=== PATIENT | female | born 1960 ===

== ENCOUNTER 2018-02-24 20:26 | Emergency (ER) | payer MEDICAID, OTHER ==
[2018-02-24 20:26] VITALS: PULSE 90; BMI 25.6
[2018-02-24 20:34] VITALS: O2SAT 98
[2018-02-24 21:16] LABS: BASO # 0.1 K/uL (0.0-0.2); BASO % 0.6 % (0.0-2.0); EOS # 0.2 K/uL (0.0-0.7); EOS % 1.4 % (0.0-4.0); HEMOGLOBIN 13.9 g/dL (11.0-16.0); LYMPH # 3.5 K/uL (1.0-4.3); LYMPH % 29.7 % (20.0-40.0); MEAN CORPUSCULAR HEMOGLOBIN 29.6 pg (27.0-31.0); MEAN CORPUSCULAR HGB CONC 32.6 g/dL (33.0-37.0); MEAN PLATELET VOLUME 8.7 fL (7.2-11.7); MONO # 1.3 K/uL (0.0-0.8); MONO % 11.1 % (0.0-10.0); NEUT # 6.8 K/uL (1.8-7.0); NEUT % 57.2 % (50.0-75.0); NRBC % 0.1 % (0.0-2.0); RBC 4.69 Mil/uL (3.80-5.20); RED CELL DISTRIBUTION WIDTH 13.8 % (11.5-14.5); WHITE BLOOD COUNT 11.9 K/uL (4.8-10.8)
[2018-02-24 21:32] LABS: ALB/GLOB RATIO 0.9 (1.0-2.1); ALBUMIN 3.8 g/dL (3.5-5.0); CALCIUM 8.7 mg/dl (8.6-10.4)
--- NOTE | 2018-02-24 21:32 | C.PDOC ---
History Of Present Illness 57 year old female presents to the ED for evaluation of right flank pain and hematuria which began yesterday. Patient also c/o nausea and states it is slightly difficult for her to pass urine. She denies fever, chills, vomiting, vaginal bleeding/discharge. Chief Complaint (Nursing): Back Pain History Per: Patient History/Exam Limitations: no limitations Onset/Duration Of Symptoms: Hrs Current Symptoms Are (Timing): Still Present Quality Of Discomfort: "Pain" Additional History Per: Patient Past Medical History Reviewed: Historical Data, Nursing Documentation, Vital Signs Vital Signs: Last Vital Signs Temp 98.3 F 02/24/18 23:35 Pulse 96 H 02/24/18 23:35 Resp 17 02/24/18 23:35 BP 124/84 02/24/18 23:35 Pulse Ox 98 02/25/18 00:54 - Medical History PMH: Anemia, Anxiety, Arthritis, Atrial Fibrillation, CAD, Depression, Diabetes , HTN, Hypercholesterolemia Denies: CHF, COPD, HIV, Hypothyroidism, Chronic Kidney Disease, Rheumatoid Arthritis Surgical History: Pacemaker - [facility] Procedures INJECT/INFUSE NEC (11/26/14) INTRODUCTION OF SERUM/TOX/VACCINE INTO MUSCLE, PERC APPROACH (08/07/15) TRANSFUSE NONAUT FROZEN PLASMA IN PERIPH VEIN, PERC (08/07/15) Family History: States: Unknown Family Hx - Social History Hx Tobacco Use: No Hx Alcohol Use: No Hx Substance Use: No - Immunization History Hx Tetanus Toxoid Vaccination: Yes Hx Influenza Vaccination: Yes Hx Pneumococcal Vaccination: No Review Of Systems Gastrointestinal: Positive for: Nausea. Negative for: Vomiting Genitourinary: Positive for: Hematuria Musculoskeletal: Positive for: Other (right flank pain ) Physical Exam - Physical Exam Appears: Non-toxic, No Acute Distress Skin: Normal Color, Warm, Dry Head: Atraumatic, Normacephalic Eye(s): bilateral: Normal Inspection Oral Mucosa: Moist Neck: Supple Chest: Symmetrical, No Deformity, No Tenderness Cardiovascular: Rhythm Regular, No Murmur Respiratory: Normal Breath Sounds, No Rales, No Rhonchi, No Wheezing Gastrointestinal/Abdominal: Soft, No Tenderness, No Guarding, No Rebound Back: CVA Tenderness (right-sided ) Extremity: Normal ROM, Capillary Refill (less than 2 seconds ) Neurological/Psych: Oriented x3, Normal Speech, Normal Cognition ED Course And Treatment - Laboratory Results Result Diagrams: 02/24/18 21:12 02/24/18 21:12 O2 Sat by Pulse Oximetry: 98 (on RA) Pulse Ox Interpretation: Normal - CT Scan/US CT A/P Other Rad Studies (CT/US): Read By Radiologist, Radiology Report Reviewed CT/US Interpretation: EXAM: CT Abdomen and Pelvis Without Intravenous Contrast. CLINICAL HISTORY: 57 years old, female; Pain; Abdominal pain; Flank ; Right; Additional info: Right flank pain. TECHNIQUE: Axial computed tomography images of the abdomen and pelvis without intravenous contrast. All CT. scans at this facility use one or more dose reduction techniques, viz.: automated exposure control;. ma/kV adjustment per patient size (including targeted exams where dose is matched to indication; i.e. head); or iterative reconstruction technique. Coronal and sagittal reformatted images were created and reviewed. COMPARISON: CT - ABD PELVIS W/O PO OR IV CONT 2015-03-11 16:14. FINDINGS: Lung bases: Unremarkable. No mass. No consolidation. Heart: The heart demonstrates mild diffuse enlargement. Coronary artery calcification. ABDOMEN: Liver: Unremarkable. Gallbladder and bile ducts: Unremarkable. No calcified stones. No ductal dilation. Pancreas: Unremarkable. No ductal dilation. Spleen: Unremarkable. No splenomegaly. Adrenals: Unremarkable. No mass. Kidneys and ureters: The right kidney is markedly atrophic. New moderate right hydronephrosis and. hydroureter with mild adjacent inflammatory stranding. No distal ureteral stone. The left kidney is. normal. Stomach and bowel: There is no wall thickening or pericolonic stranding to suggest colitis. No. obstruction. There is a moderate amount of retained stool in the colon. PELVIS: Appendix: No findings to suggest acute appendicitis. Bladder: There is mild asymmetric bladder wall thickening. No stones. Reproductive: Unremarkable as visualized. ABDOMEN and PELVIS: Intraperitoneal space: Unremarkable. No free air. No significant fluid collection. Bones/joints: No acute fracture. No dislocation. Soft tissues: Unremarkable. Vasculature: The vasculature demonstrates diffuse mild atherosclerotic calcification. No abdominal aortic aneurysm. Lymph nodes: Unremarkable. No enlarged lymph nodes. IMPRESSION: Atrophic right kidney with moderate right hydroureteronephrosis and periureteral inflammatory. changes. No distal ureteral stone. Diagnostic considerations include recently passed stone or. nonopaque distal ureteral stone. Medical Decision Making Medical Decision Making: Progress: Bloodwork, urinalysis, CT A/P ordered and reviewed. Toradol IVP administered. Disposition - Disposition Referrals: Karol Mccurdy MD [Staff Provider] - Disposition: HOME/ ROUTINE Disposition Time: 21:40 Condition: IMPROVED Additional Instructions: KAMILA SIN, thank you for letting us take care of you today. Your provider was Lm Wang DO. The emergency medical care you received today was directed at your acute symptoms. If you were prescribed any medication, please fill it and take as directed. It may take several days for your symptoms to resolve. Return to the Emergency Department if your symptoms worsen, do not improve, or if you have any other problems. Please contact your doctor or call one of the physicians/clinics you have been referred to that are listed on the Patient Visit Information form that is included in your discharge packet. Bring any paperwork you were given at discharge with you along with any medications you are taking to your follow up visit. Our treatment cannot replace ongoing medical care by a primary care provider outside of the emergency department. Thank you for allowing the [facility] team to be part of your care today. Follow up with the urologist in 2-3 days for re-evaluation and further management. KAMILA SIN, cesario por dejarnos atenderlo dean. Sahu proveedor fue Lm Wang DO. La atencin mdica de emergencia que recibi hoy estaba dirigida a geovanna sntomas agudos. Si le prescribieron algn medicamento, llnelo y tome seg n las indicaciones. Geovanna sntomas pueden tardar varios junior en resolverse. Regrese al Departamento de Emergencia si geovanna sntomas empeoran, no mejoran o si tiene algn otro problema. Comunquese con sahu mdico o llame a jefe de los mdicos / clnicas a los que ray sido referido que figura en el formulario de Informacin de visita del paciente que se incluye en sahu paquete de martinez. Traiga todos los documentos que recibi al momento del martinez junto con los medicamentos que est tomando en sahu visita de seguimiento. Nuestro tratamiento no puede reemplazar la atencin mdica en curso por un proveedor de atencin primaria fuera del departamento de emergencia. Cesario por permitir que el equipo de [facility] sea parte de sahu cuidado hoy. Martin un seguimiento con el urlogo en 2-3 junior para chung reevaluacin y administracin adicional. Prescriptions: Ciprofloxacin [Cipro] 500 mg PO BID #14 tab Ibuprofen [Motrin] 600 mg PO Q6 PRN #20 tab PRN Reason: Pain, Moderate (4-7) Tamsulosin [Flomax] 0.4 mg PO DAILY #7 cap Instructions: Kidney Stones in Adults Forms: Gen Discharge Inst Cymro, Posibl. (Cymro) Print Language: FRENCH - Clinical Impression Clinical Impression: Acute urinary tract infection - Scribe Statement The provider has reviewed the documentation as recorded by the Scribe (Kadie Hill) Provider Attestation: All medical record entries made by the Scribe were at my direction and personally dictated by me. I have reviewed the chart and agree that the record accurately reflects my personal performance of the history, physical exam, medical decision making, and the department course for this patient. I have also personally directed, reviewed, and agree with the discharge instructions and disposition.
[2018-02-24 21:47] LABS: SQUAMOUS EPITHIAL 4 /hpf (0-5); URINE BACTERIA FEW (<OCC); URINE BILIRUBIN NEGATIVE (NEGATIVE); URINE BLOOD 3+ (NEGATIVE); URINE CLARITY Hazy (Clear); URINE COLOR Red (YELLOW); URINE GLUCOSE (UA) 1+ mg/dL (Normal); URINE LEUKOCYTE ESTERASE 1+ Leu/uL (Negative); URINE PROTEIN 3+ mg/dL (NEGATIVE); URINE UROBILINOGEN NORMAL mg/dL (0.2-1.0)
--- NOTE | 2018-02-24 22:48 | CT ---
EXAM: CT Abdomen and Pelvis Without Intravenous Contrast CLINICAL HISTORY: 57 years old, female; Pain; Abdominal pain; Flank; Right; Additional info: Right flank pain TECHNIQUE: Axial computed tomography images of the abdomen and pelvis without intravenous contrast. All CT scans at this facility use one or more dose reduction techniques, viz.: automated exposure control; ma/kV adjustment per patient size (including targeted exams where dose is matched to indication; i.e. head); or iterative reconstruction technique. Coronal and sagittal reformatted images were created and reviewed. COMPARISON: CT - ABD PELVIS W/O PO OR IV CONT 2015-03-11 16:14 FINDINGS: Lung bases: Unremarkable. No mass. No consolidation. Heart: The heart demonstrates mild diffuse enlargement. Coronary artery calcification. ABDOMEN: Liver: Unremarkable. Gallbladder and bile ducts: Unremarkable. No calcified stones. No ductal dilation. Pancreas: Unremarkable. No ductal dilation. Spleen: Unremarkable. No splenomegaly. Adrenals: Unremarkable. No mass. Kidneys and ureters: The right kidney is markedly atrophic. New moderate right hydronephrosis and hydroureter with mild adjacent inflammatory stranding. No distal ureteral stone. The left kidney is normal. Stomach and bowel: There is no wall thickening or pericolonic stranding to suggest colitis. No obstruction. There is a moderate amount of retained stool in the colon. PELVIS: Appendix: No findings to suggest acute appendicitis. Bladder: There is mild asymmetric bladder wall thickening. No stones. Reproductive: Unremarkable as visualized. ABDOMEN and PELVIS: Intraperitoneal space: Unremarkable. No free air. No significant fluid collection. Bones/joints: No acute fracture. No dislocation. Soft tissues: Unremarkable. Vasculature: The vasculature demonstrates diffuse mild atherosclerotic calcification. No abdominal aortic aneurysm. Lymph nodes: Unremarkable. No enlarged lymph nodes. IMPRESSION: Atrophic right kidney with moderate right hydroureteronephrosis and periureteral inflammatory changes. No distal ureteral stone. Diagnostic considerations include recently passed stone or nonopaque distal ureteral stone.
[2018-02-24 23:37] VITALS: BP 124/84; PULSE 96; RESP 17; TEMP 98.3
== END 2018-02-24 23:35 | disposition home or self-care (01) ==
LOC: C.ER 20:26
DX: N39.0 Urinary tract infection, site not specified (principal); I48.91 Unspecified atrial fibrillation; I10 Essential (primary) hypertension; E11.9 Type 2 diabetes mellitus without complications; E78.00 Pure hypercholesterolemia, unspecified; D64.9 Anemia, unspecified
CPT/HCPCS: 74176; 80053; 81001; 83690; 85025; 87086; 96374; 99284; J1885

== ENCOUNTER 2018-02-25 23:59 | Inpatient (IN) | payer MEDICAID ==
[2018-02-26] VITALS: PULSE 90; BMI 25.6
[2018-02-26] MEDS ORDERED: Sodium Chloride 0.9% 1,000 ML IV ONE (00:38)
[2018-02-26] MEDS ORDERED: Morphine 4 MG/ML VIAL ONE (00:54)
[2018-02-26] MEDS ORDERED: Sodium Chloride 0.9% 1,000 ML ONE (00:54)
[2018-02-26 01:38] LABS: BASO # 0.1 K/uL (0.0-0.2); BASO % 0.6 % (0.0-2.0); EOS # 0.1 K/uL (0.0-0.7); EOS % 1.5 % (0.0-4.0); HEMOGLOBIN 13.1 g/dL (11.0-16.0); LYMPH # 2.3 K/uL (1.0-4.3); LYMPH % 24.9 % (20.0-40.0); MEAN CELL VOLUME 90.5 fL (81.0-99.0); MEAN CORPUSCULAR HEMOGLOBIN 30.3 pg (27.0-31.0); MEAN CORPUSCULAR HGB CONC 33.4 g/dL (33.0-37.0); MEAN PLATELET VOLUME 8.7 fL (7.2-11.7); MONO # 0.9 K/uL (0.0-0.8); MONO % 10.3 % (0.0-10.0); NEUT # 5.7 K/uL (1.8-7.0); NEUT % 62.7 % (50.0-75.0); NRBC % 0.1 % (0.0-2.0); RBC 4.34 Mil/uL (3.80-5.20); RED CELL DISTRIBUTION WIDTH 13.6 % (11.5-14.5); WHITE BLOOD COUNT 9.1 K/uL (4.8-10.8)
[2018-02-26 01:43] LABS: INR 1.6; PROTHROMBIN TIME 17.7 SECONDS (9.7-12.2)
[2018-02-26 01:59] LABS: ALB/GLOB RATIO 0.9 (1.0-2.1); ALBUMIN 3.8 g/dL (3.5-5.0); ALT/SGPT 17 U/L (9-52); AST/SGOT 25 U/L (14-36); BLOOD UREA NITROGEN 17 mg/dL (7-17); CALCIUM 9.1 mg/dl (8.6-10.4); GFR AFRICAN-AMERICAN > 60; GFR NON-AFRICAN AMERICAN 51; LIPASE 108 U/L (23-300)
--- NOTE | 2018-02-26 02:39 | C.PDOC ---
History Of Present Illness Pt c/o painful hematuria. She was evaluated in this ED yesterday with labs, urinalysis and CT scan of abdomen/pelvis. She was discharged home on Cipro which she is taking without relief. Time Seen by Provider: 02/26/18 00:33 Chief Complaint (Nursing): Female Genitourinary History Per: Patient, Family Onset/Duration Of Symptoms: Days (1) Current Symptoms Are (Timing): Still Present Severity: Severe Location Of Pain/Discomfort: Suprapubic Radiation Of Pain To:: Back Quality Of Discomfort: "Pain" Associated Symptoms: Nausea, Urinary Symptoms Alleviating Factors: None Additional History Per: Prior Records Past Medical History Reviewed: Historical Data, Nursing Documentation, Vital Signs Vital Signs: Last Vital Signs Temp 98.4 F 02/26/18 00:03 Pulse 96 H 02/26/18 00:03 Resp 20 02/26/18 00:03 BP 139/94 H 02/26/18 00:03 Pulse Ox 97 02/26/18 02:42 - Medical History PMH: Anemia, Anxiety, Arthritis, Atrial Fibrillation, CAD, Depression, Diabetes , HTN, Hypercholesterolemia Surgical History: Pacemaker - [facility] Procedures INJECT/INFUSE NEC (11/26/14) INTRODUCTION OF SERUM/TOX/VACCINE INTO MUSCLE, PERC APPROACH (08/07/15) TRANSFUSE NONAUT FROZEN PLASMA IN PERIPH VEIN, PERC (08/07/15) Family History: States: Unknown Family Hx - Social History Hx Tobacco Use: No Hx Alcohol Use: No Hx Substance Use: No - Immunization History Hx Tetanus Toxoid Vaccination: Yes Hx Influenza Vaccination: Yes Hx Pneumococcal Vaccination: No Review Of Systems Except As Marked, All Systems Reviewed And Found Negative. Cardiovascular: Negative for: Chest Pain Respiratory: Negative for: Shortness of Breath Gastrointestinal: Positive for: Abdominal Pain Genitourinary: Positive for: Dysuria, Hematuria Musculoskeletal: Positive for: Back Pain Skin: Negative for: Rash Neurological: Negative for: Weakness, Numbness Physical Exam - Physical Exam Appears: Chronically Ill, Other (Uncomfortable in pain) Skin: Normal Color, Warm, Dry Head: Atraumatic, Normacephalic Eye(s): bilateral: PERRL, EOMI Neck: Normal ROM, Supple Respiratory: Normal Breath Sounds, No Accessory Muscle Use Gastrointestinal/Abdominal: Soft, Tenderness (suprapubic) Back: CVA Tenderness (right) Extremity: Normal ROM Neurological/Psych: Oriented x3, Normal Motor, Normal Sensation ED Course And Treatment - Laboratory Results Result Diagrams: 02/26/18 01:35 02/26/18 01:35 O2 Sat by Pulse Oximetry: 97 Pulse Ox Interpretation: Normal Medical Decision Making Medical Decision Making: Upon review of records, pt had a urine culture in 2014 that was positive for ESBL E. Coli. Disposition Discussed With : Chris Colon Comment: He accepted pt on his service. Doctor Will See Patient In The: Hospital Counseled Patient/Family Regarding: Studies Performed, Diagnosis - Disposition Disposition: HOSPITALIZED Disposition Time: 03:07 Condition: FAIR - Clinical Impression Clinical Impression: Complicated urinary tract infection, Hematuria
[2018-02-26 03:17] LABS: SQUAMOUS EPITHIAL 2 /hpf (0-5); URINE BACTERIA OCC (<OCC); URINE BILIRUBIN NEGATIVE (NEGATIVE); URINE BLOOD 3+ (NEGATIVE); URINE CLARITY Hazy (Clear); URINE COLOR Amber (YELLOW); URINE GLUCOSE (UA) NORMAL (Normal); URINE LEUKOCYTE ESTERASE 1+ Leu/uL (Negative); URINE PROTEIN 3+ mg/dL (NEGATIVE); URINE UROBILINOGEN NORMAL mg/dL (0.2-1.0)
[2018-02-26] MEDS ORDERED: Ciprofloxacin 400mg/200ml D5W 400 MG/200 ML BAG IVPB ONE (03:51)
[2018-02-26] MEDS: Ciprofloxacin 400mg/200ml D5W 400 MG/200 ML BAG IVPB SCH ×2 (03:54→15:02)
[2018-02-26] MEDS ORDERED: Enoxaparin 40 mg Syringe SC SCH (10:00)
[2018-02-26] MEDS: Multiple Vitamins Tab PO SCH (10:56)
--- NOTE | 2018-02-26 14:47 | US ---
PROCEDURE: Ultrasound of the Kidneys HISTORY: uti COMPARISON: None available. TECHNIQUE: Sonogram of the kidneys. FINDINGS: RIGHT KIDNEY: Measures: 9.7 x 5.4 x 4.2 cm. Normal in size, contour and echogenicity. Mildly dilated right kidney collecting system suggestive of mild hydronephrosis. LEFT KIDNEY: Measures: 11.1 x 6.3 x 5.7 cm. Normal in size, contour and echogenicity. No stone, solid mass lesion or hydronephrosis visualized. OTHER FINDINGS: The urinary bladder is mildly distended. IMPRESSION: Mild right hydronephrosis.
--- NOTE | 2018-02-26 17:11 | CP.PCM.HP ---
History of Present Illness - History of Present Illness History of Present Illness: CC: abdominal pelvic pain History Of Present Illness Pt is a 57 year old female who has h/o cardiac problems, she is not sure according to her she has weak heart and used to have defibrillator due to arrytmia came in with c/o Lower abdominal pain in pelvic area associated with painful hematuria. She was evaluated in this ED yesterday with labs, urinalysis and CT scan of abdomen/pelvis. She was discharged home on Cipro which she is taking without relief. Present on Admission - Present on Admission Any Indicators Present on Admission: Yes Review of Systems - Review of Systems Systems not reviewed;Unavailable: Acuity of Condition - Constitutional Constitutional: Fatigue, Lethargy, Weakness - EENT Eyes: absent: As Per HPI, Blind Spots, Blurred Vision, Change in Vision, Decreased Night Vision, Diplopia, Discharge, Dry Eye, Exophthalmos, Floaters, Irritation, Itchy Eyes, Loss of Peripheral Vision, Pain, Photophobia, Requires Corrective Lenses, Sees Flashes, Spots in Vision, Tunnel Vision, Other Visual Disturbances, Loss of Vision, Other Nose/Mouth/Throat: absent: As Per HPI, Epistaxis, Nasal Congestion, Nasal Discharge, Nasal Obstruction, Nasal Trauma, Nose Pain, Post Nasal Drip, Sinus Pain, Sinus Pressure, Bleeding Gums, Change in Voice, Dental Pain, Dry Mouth, Dysphagia, Halitosis, Hoarsness, Lip Swelling, Mouth Lesions, Mouth Pain, Odynophagia, Sore Throat, Throat Swelling, Tongue Swelling, Facial Pain, Neck Pain, Neck Mass, Other - Breasts Breasts: absent: As Per HPI, Change in Shape, Mass, Pain, Nipple Discharge, Nipple Inversion, Skin Changes, Swelling, Other - Cardiovascular Cardiovascular: Dyspnea on Exertion, Rapid Heart Rate - Respiratory Respiratory: absent: As Per HPI, Cough, Dyspnea, Hemoptysis, Dyspnea on Exertion , Wheezing, Snoring, Stridor, Pain on Inspiration, Chest Congestion, Excessive Mucous Production, Change in Mucous Color, Pain with Coughing, Other - Gastrointestinal Gastrointestinal: Abdominal Pain - Genitourinary Genitourinary: Change in Urinary Stream, Dysuria, Hematuria - Neurological Neurological: absent: As Per HPI, Abnormal Gait, Abnormal Hearing, Abnormal Movements, Abnormal Speech, Behavioral Changes, Burning Sensations, Confusion, Convulsions, Disequilibrium, Dizziness, Numbness, Focal Weakness, Frequent Falls , Headaches, Lack of Coordination, Loss of Vision, Memory Loss, Paresthesias, Radicular Pain, Restless Legs, Sensory Deficit, Syncope, Tingling, Tremor, Vertigo, Weakness, Other Visual Disturbances, Other - Psychiatric Psychiatric: absent: As Per HPI, Abnormal Sleep Pattern, Anhedonia, Anxiety, Auditory Hallucinations, Behavioral Changes, Change in Appetite, Change in Libido, Confusion, Depression, Difficulty Concentrating, Hallucinations, Homicidal Ideation, Hopelessness, Irritability, Memory Loss, Mood Swings, Panic Attacks, Paranoia, Suicidal Ideation, Visual Hallucinations, Tactile Hallucinations, Other - Endocrine Endocrine: absent: As Per HPI, Change in Body Appearance, Change in Libido, Cold Intolorance, Deepening of Voice, Excessive Sweating, Fatigue, Flushing, Heat Intolorance, Increase in Ring/Shoe/Hat Size, Palpitations, Polydipsia, Polyphagia, Polyuria, Other Past Patient History - Infectious Disease Hx of Infectious Diseases: None - Tetanus Immunizations Tetanus Immunization: Unknown - Past Medical History & Family History Past Medical History?: Yes - Past Social History Smoking Status: Never Smoked - CARDIAC Hx Atrial Fibrillation: Yes Hx Hypercholesterolemia: Yes Hx Hypertension: Yes Hx Pacemaker: Yes - PULMONARY Hx Chronic Obstructive Pulmonary Disease (COPD): No - NEUROLOGICAL Hx Neurological Disorder: No - HEENT Hx HEENT Problems: No - RENAL Hx Chronic Kidney Disease: No - ENDOCRINE/METABOLIC Hx Hypothyroidism: No - HEMATOLOGICAL/ONCOLOGICAL Hx Anemia: Yes - INTEGUMENTARY Hx Dermatological Problems: No - MUSCULOSKELETAL/RHEUMATOLOGICAL Hx Arthritis: Yes - GASTROINTESTINAL Hx Gastrointestinal Disorders: No - GENITOURINARY/GYNECOLOGICAL Hx Genitourinary Disorders: Yes Hx Incontinence: Yes - PSYCHIATRIC Hx Anxiety: Yes Hx Depression: Yes Hx Substance Use: No - SURGICAL HISTORY Hx Surgeries: Yes Hx Hysterectomy: Yes Other/Comment: PACEMAKER- 2014 ? FOR LOW HEART RATE - ANESTHESIA Hx Anesthesia: Yes Hx Anesthesia Reactions: No Meds Allergies/Adverse Reactions: Allergies Allergy/AdvReac Type Severity Reaction Status Date / Time No Known Allergies Allergy Verified 02/24/18 20:34 Physical Exam - Constitutional Additional comments: mild distress due to pelvic pain - Eye Exam Eye Exam: EOMI, Normal appearance - Respiratory Exam Respiratory Exam: Clear to Auscultation Bilateral, NORMAL BREATHING PATTERN - Cardiovascular Exam Cardiovascular Exam: +S1, +S2, Systolic Murmur Additional comments: S3 positive 2/6 ESM at apex AICD in infraclavicular area - GI/Abdominal Exam GI & Abdominal Exam: Tenderness Additional comments: hypogastric tenderness - Neurological Exam Neurological exam: Alert, CN II-XII Intact, Normal Gait, Oriented x3, Reflexes Normal - Psychiatric Exam Psychiatric exam: Normal Affect, Normal Mood - Skin Skin Exam: Dry, Intact, Normal Color, Warm Results - Vital Signs Recent Vital Signs: Last Vital Signs Temp 98.4 F 02/26/18 16:00 Pulse 70 02/26/18 16:00 Resp 20 02/26/18 16:00 BP 134/89 02/26/18 16:00 Pulse Ox 97 02/26/18 16:00 - Labs Result Diagrams: 02/26/18 01:35 02/26/18 01:35 Labs: Laboratory Results - last 24 hr 02/26/18 02/26/18 02/26/18 01:35 01:35 01:35 WBC 9.1 RBC 4.34 Hgb 13.1 Hct 39.3 MCV 90.5 MCH 30.3 MCHC 33.4 RDW 13.6 Plt Count 275 MPV 8.7 Neut % (Auto) 62.7 Lymph % (Auto) 24.9 [place] % (Auto) 10.3 H Eos % (Auto) 1.5 Baso % (Auto) 0.6 Neut # (Auto) 5.7 Lymph # (Auto) 2.3 [place] # (Auto) 0.9 H Eos # (Auto) 0.1 Baso # (Auto) 0.1 PT 17.7 H INR 1.6 APTT 36 H Sodium 141 Potassium 4.1 Chloride 105 Carbon Dioxide 24 Anion Gap 15 BUN 17 Creatinine 1.1 Est GFR ( Amer) > 60 Est GFR (Non-Af Amer) 51 Random Glucose 104 Calcium 9.1 Total Bilirubin 0.6 AST 25 ALT 17 Alkaline Phosphatase 121 Total Protein 8.2 Albumin 3.8 Globulin 4.4 H Albumin/Globulin Ratio 0.9 L Lipase 108 Urine Color Urine Clarity Urine pH Ur Specific [place] Urine Protein Urine Glucose (UA) Urine Ketones Urine Blood Urine Nitrate Urine Bilirubin Urine Urobilinogen Ur Leukocyte Esterase Urine WBC (Auto) Urine RBC (Auto) Ur Squamous Epith Cells Urine Bacteria 02/26/18 03:07 WBC RBC Hgb Hct MCV MCH MCHC RDW Plt Count MPV Neut % (Auto) Lymph % (Auto) [place] % (Auto) Eos % (Auto) Baso % (Auto) Neut # (Auto) Lymph # (Auto) [place] # (Auto) Eos # (Auto) Baso # (Auto) PT INR APTT Sodium Potassium Chloride Carbon Dioxide Anion Gap BUN Creatinine Est GFR ( Amer) Est GFR (Non-Af Amer) Random Glucose Calcium Total Bilirubin AST ALT Alkaline Phosphatase Total Protein Albumin Globulin Albumin/Globulin Ratio Lipase Urine Color [place] Urine Clarity Hazy Urine pH 7.0 Ur Specific [place] 1.009 Urine Protein 3+ H Urine Glucose (UA) Normal Urine Ketones Negative Urine Blood 3+ H Urine Nitrate Positive H Urine Bilirubin Negative Urine Urobilinogen Normal Ur Leukocyte Esterase 1+ H Urine WBC (Auto) 119 H Urine RBC (Auto) 1680 H Ur Squamous Epith Cells 2 Urine Bacteria Occ H Assessment & Plan (1) Hematuria Assessment and Plan: R/O nephrolithiasis, ureterolituhiasis Kidney U/S Urology eval urine cultures Status: Acute (2) Acute urinary tract infection Status: Acute Priority: High (3) Atrial fibrillation with rapid ventricular response Status: Acute
[2018-02-26] MEDS: Sodium Chloride 0.9% 1,000 ML IV SCH (20:33)
[2018-02-27] MEDS: Ciprofloxacin 400mg/200ml D5W 400 MG/200 ML BAG IVPB SCH ×2 (01:46→14:26)
[2018-02-27] MEDS: (Novolog) Insulin Aspart, Recombinant 100 u/ml 10 ml vial SC SCH ×4 (07:58→21:32)
[2018-02-27] MEDS: Multiple Vitamins Tab PO SCH (10:20)
[2018-02-27] MEDS ORDERED: Iodixanol 320 MG/ML 100 ML BOTTLE IV ONE (16:12)
[2018-02-27] MEDS: Sodium Chloride 0.9% 1,000 ML IV SCH (19:57)
[2018-02-27] MEDS ORDERED: Morphine 4 MG/ML VIAL IVP STA (21:06)
--- NOTE | 2018-02-27 23:44 | CP.PCM.PN ---
Subjective - Date & Time of Evaluation Date of Evaluation: 02/27/18 Time of Evaluation: 20:00 - Subjective Subjective: Pt seen and examined, c/o intense flank pain, is seen by nephrology too and KUB was performed b/l hydronephrosis, Ct abdomen is ordered on IV fluids,pain meds Objective - Vital Signs/Intake and Output Vital Signs (last 24 hours): Temp Pulse Resp BP Pulse Ox 98.5 F 73 20 108/76 97 02/27/18 16:00 02/27/18 16:00 02/27/18 16:00 02/27/18 16:00 02/27/18 16:00 Intake and Output: 02/27/18 02/28/18 18:59 06:59 Intake Total 1660 Balance 1660 - Medications Medications: Current Medications Acetaminophen (Tylenol 325mg Tab) 650 mg PO Q6 PRN PRN Reason: Fever >100.4 F Last Admin: 02/27/18 14:22 Dose: 650 mg Aspirin (Ecotrin) 81 mg PO DAILY MAX Last Admin: 02/27/18 10:19 Dose: 81 mg Clonazepam (Klonopin) 0.5 mg PO DAILY PRN PRN Reason: Anxiety Last Admin: 02/27/18 14:22 Dose: 0.5 mg Famotidine (Pepcid) 20 mg PO DAILY [facility] Last Admin: 02/27/18 10:19 Dose: 20 mg Ciprofloxacin (Cipro 400mg/200ml Dsw) 400 mg in 200 mls @ 133 mls/hr IVPB Q12H MAX PRN Reason: Protocol Last Admin: 02/27/18 14:26 Dose: 133 mls/hr Sodium Chloride (Sodium Chloride 0.9%) 1,000 mls @ 40 mls/hr IV .Q24H MAX Last Admin: 02/27/18 19:57 Dose: Not Given Insulin Aspart (Novolog) 0 unit SC ACHS MAX PRN Reason: Protocol Last Admin: 02/27/18 21:32 Dose: Not Given Lactulose (Enulose) 20 gm PO DAILY PRN PRN Reason: Constipation Last Admin: 02/26/18 21:41 Dose: 20 gm Losartan Potassium (Cozaar) 50 mg PO HS [facility] Last Admin: 02/27/18 21:34 Dose: 50 mg Metoprolol Tartrate (Lopressor) 100 mg PO Q12 MAX Last Admin: 02/27/18 21:34 Dose: 100 mg Mirtazapine (Remeron) 30 mg PO HS [facility] Last Admin: 02/27/18 21:33 Dose: 30 mg Morphine Sulfate (Morphine) 2 mg IVP Q4 PRN PRN Reason: Pain, moderate (4-7) Last Admin: 02/27/18 18:20 Dose: 2 mg Multivitamins (Hexavitamin) 1 tab PO DAILY [facility] Last Admin: 02/27/18 10:20 Dose: 1 tab Phenazopyridine HCl (Pyridium) 200 mg PO TIDPC [facility] Last Admin: 02/27/18 18:21 Dose: 200 mg Pneumococcal Polyvalent Vaccine (Pneumovax 23 Vaccine) 0.5 ml IM .ONCE ONE Stop: 03/01/18 10:01 Tamsulosin HCl (Flomax) 0.4 mg PO DAILY [facility] Last Admin: 02/27/18 10:19 Dose: 0.4 mg Tramadol HCl (Ultram) 50 mg PO Q6 PRN PRN Reason: Pain, Mild (1-3) Last Admin: 02/27/18 20:38 Dose: 50 mg - Labs Labs: 02/26/18 01:35 02/26/18 01:35 PT 17.7 SECONDS (9.7-12.2) H 02/26/18 01:35 INR 1.6 02/26/18 01:35 APTT 36 SECONDS (21-34) H 02/26/18 01:35 - Constitutional Appears: No Acute Distress - Head Exam Head Exam: ATRAUMATIC, NORMAL INSPECTION, NORMOCEPHALIC - Eye Exam Eye Exam: EOMI, Normal appearance, PERRL Pupil Exam: NORMAL ACCOMODATION, PERRL - ENT Exam ENT Exam: Mucous Membranes Moist, Normal Exam - Respiratory Exam Respiratory Exam: Clear to Ausculation Bilateral, NORMAL BREATHING PATTERN - Cardiovascular Exam Cardiovascular Exam: REGULAR RHYTHM, +S1, +S2. absent: Murmur - GI/Abdominal Exam GI & Abdominal Exam: Soft, Normal Bowel Sounds. absent: Tenderness - Rectal Exam Rectal Exam: Deferred Assessment and Plan (1) Hematuria Status: Acute (2) Acute urinary tract infection Assessment & Plan: urology eval CT abdomen careful hydration R/O nephrolithiasis Pain meds Status: Acute (3) Atrial fibrillation with rapid ventricular response Status: Acute
[2018-02-28] MEDS: Ciprofloxacin 400mg/200ml D5W 400 MG/200 ML BAG IVPB SCH ×2 (02:16→13:49)
[2018-02-28 07:33] LABS: HEMOGLOBIN 12.4 g/dL (11.0-16.0); MEAN CELL VOLUME 90.1 fL (81.0-99.0); MEAN CORPUSCULAR HEMOGLOBIN 30.5 pg (27.0-31.0); MEAN CORPUSCULAR HGB CONC 33.9 g/dL (33.0-37.0); MEAN PLATELET VOLUME 8.8 fL (7.2-11.7); RBC 4.07 Mil/uL (3.80-5.20); RED CELL DISTRIBUTION WIDTH 13.7 % (11.5-14.5); WHITE BLOOD COUNT 8.9 K/uL (4.8-10.8)
[2018-02-28 07:56] LABS: BLOOD UREA NITROGEN 12 mg/dL (7-17); CALCIUM 8.7 mg/dl (8.6-10.4); GFR AFRICAN-AMERICAN > 60; GFR NON-AFRICAN AMERICAN 57
[2018-02-28] MEDS: (Novolog) Insulin Aspart, Recombinant 100 u/ml 10 ml vial SC SCH ×4 (08:15→22:40)
[2018-02-28] MEDS: Multiple Vitamins Tab PO SCH (09:03)
[2018-02-28 09:44] LABS: CK-MB 0.57 ng/mL (0.0-3.38)
--- NOTE | 2018-02-28 09:59 | CP.PCM.PN ---
Subjective - Date & Time of Evaluation Date of Evaluation: 02/28/18 Time of Evaluation: 09:57 - Subjective Subjective: PATTERN REPAIR PERSON CALLED BY PRIMARY RN PEGGY THAT PT WAS C/O PALPITATIONS AND MILD CHEST PRESSURE. PT SEEN BY PATTERN REPAIR PERSON. CURRENTLY DENIES PALPITATIONS OR CHEST PAIN. ALSO DENIES H/A, DIZZINESS, SOB. STILL HAS INTERMITTENT SUPRAPUBIC PAIN, BUT IS ADMITTED FOR COMPLICATED UTI. ON EXAM HR 86, RR 18. APPEARS TO BE IN PAIN. STAT LABS AND EKG REVIEWED. DISCUSSED WITH DR. LAMAS UPON ROUNDS AND WILL TRANSFER TO TELE. PATTERN REPAIR PERSON ALSO DISCUSSED CT RESULTS WITH DR. HARTMAN, WHO WILL PLAN FOR POSSIBLE CYSTO IN THE MORNING. I'VE ORDERED NPO PAST MIDNIGHT AND ENDORSED TO [facility] FOR FURTHER MANAGEMENT. NO FURTHER ORDERS. Objective - Vital Signs/Intake and Output Vital Signs (last 24 hours): Temp Pulse Resp BP Pulse Ox 98.5 F 75 20 124/85 96 02/28/18 07:40 02/28/18 07:40 02/28/18 07:40 02/28/18 07:40 02/28/18 07:40 Intake and Output: 02/28/18 02/28/18 06:59 18:59 Intake Total 1470 Balance 1470 - Medications Medications: Current Medications Acetaminophen (Tylenol 325mg Tab) 650 mg PO Q6 PRN PRN Reason: Fever >100.4 F Last Admin: 02/27/18 14:22 Dose: 650 mg Aspirin (Ecotrin) 81 mg PO DAILY MAX Last Admin: 02/28/18 09:04 Dose: 81 mg Clonazepam (Klonopin) 0.5 mg PO DAILY PRN PRN Reason: Anxiety Last Admin: 02/28/18 09:03 Dose: 0.5 mg Famotidine (Pepcid) 20 mg PO DAILY MAX Last Admin: 02/28/18 09:10 Dose: 20 mg Ciprofloxacin (Cipro 400mg/200ml Dsw) 400 mg in 200 mls @ 133 mls/hr IVPB Q12H MAX PRN Reason: Protocol Last Admin: 02/28/18 02:16 Dose: 133 mls/hr Sodium Chloride (Sodium Chloride 0.9%) 1,000 mls @ 40 mls/hr IV .Q24H MAX Last Admin: 02/27/18 19:57 Dose: Not Given Insulin Aspart (Novolog) 0 unit SC ACHS [facility] PRN Reason: Protocol Last Admin: 02/28/18 08:15 Dose: Not Given Lactulose (Enulose) 20 gm PO DAILY PRN PRN Reason: Constipation Last Admin: 02/26/18 21:41 Dose: 20 gm Losartan Potassium (Cozaar) 50 mg PO HS [facility] Last Admin: 02/27/18 21:34 Dose: 50 mg Metoprolol Tartrate (Lopressor) 100 mg PO Q12 [facility] Last Admin: 02/28/18 09:03 Dose: 100 mg Mirtazapine (Remeron) 30 mg PO HS [facility] Last Admin: 02/27/18 21:33 Dose: 30 mg Morphine Sulfate (Morphine) 2 mg IVP Q4 PRN PRN Reason: Pain, moderate (4-7) Last Admin: 02/28/18 08:38 Dose: 2 mg Multivitamins (Hexavitamin) 1 tab PO DAILY [facility] Last Admin: 02/28/18 09:03 Dose: 1 tab Phenazopyridine HCl (Pyridium) 200 mg PO [facility] Last Admin: 02/28/18 09:04 Dose: 200 mg Pneumococcal Polyvalent Vaccine (Pneumovax 23 Vaccine) 0.5 ml IM .ONCE ONE Stop: 03/01/18 10:01 Tamsulosin HCl (Flomax) 0.4 mg PO DAILY [facility] Last Admin: 02/28/18 09:03 Dose: 0.4 mg Tramadol HCl (Ultram) 50 mg PO Q6 PRN PRN Reason: Pain, Mild (1-3) Last Admin: 02/28/18 03:00 Dose: 50 mg - Labs Labs: 02/28/18 07:17 02/28/18 07:17 PT 17.7 SECONDS (9.7-12.2) H 02/26/18 01:35 INR 1.6 02/26/18 01:35 APTT 36 SECONDS (21-34) H 02/26/18 01:35
--- NOTE | 2018-02-28 10:27 | CT ---
PROCEDURE: CT Abdomen and Pelvis with and without intravenous contrast HISTORY: COMPLICATED UTI, HEMATURIA, DYSURIA COMPARISON: 03/11/2015 and 02/24/2018 TECHNIQUE: Axial images of the abdomen were obtained in the pre contrast, portal venous and delayed phases of enhancement. Coronal and sagittal reformats were generated. Contrast dose: 100 cc of Omnipaque Radiation dose: Total exam DLP = 1298 mGy-cm. This CT exam was performed using one or more of the following dose reduction techniques: Automated exposure control, adjustment of the mA and/or kV according to patient size, and/or use of iterative reconstruction technique. FINDINGS: LOWER THORAX: Cardiomegaly. LIVER: Unremarkable. No gross lesion or ductal dilatation. GALLBLADDER AND BILE DUCTS: Unremarkable. PANCREAS: Unremarkable. No gross lesion or ductal dilatation. SPLEEN: Unremarkable. ADRENALS: Unremarkable. No mass. KIDNEYS AND URETERS: Re- demonstration of marked atrophy of the right kidney with a large wedge-shaped defects in the right renal parenchyma compatible with chronic infarcts. Slight dilatation of the right urinary tract without evidence of hydronephrosis. VASCULATURE: Unremarkable. No aortic aneurysm. BOWEL: Unremarkable. No obstruction. No gross mural thickening. APPENDIX: Normal appendix. PERITONEUM: Unremarkable. No free fluid. No free air. LYMPH NODES: Unremarkable. No enlarged lymph nodes. BLADDER: Severe bladder wall circumferential thickening with perivesicular fat infiltration compatible with underlying cystitis. Correlate with cystoscopy if clinically indicated. . REPRODUCTIVE: Unremarkable. BONES: No acute fracture. OTHER FINDINGS: None. IMPRESSION: Re- demonstration of marked atrophy of the right kidney with a large wedge-shaped defects in the right renal parenchyma compatible with chronic infarcts. Slight dilatation of the right urinary tract without evidence of hydronephrosis. Severe bladder wall circumferential thickening with perivesicular fat infiltration compatible with underlying cystitis. Correlate with cystoscopy if clinically indicated. .
[2018-02-28 13:07] LABS: INR 1.5; PROTHROMBIN TIME 16.4 SECONDS (9.7-12.2)
--- NOTE | 2018-02-28 18:02 | PN ---
DATE: 02/28/2018 The patient still has severe lower abdominal pain and suprapubic pain with frequency. CT urogram revealed possible infarction on the right side with hydronephrosis, the left normal and thick gallbladder. PLAN: If the patient is medically stable, to do cysto in a.m. and possible bladder biopsy. The patient is scheduled for that. Chary Kidd MD
--- NOTE | 2018-02-28 21:44 | CP.PCM.CON ---
History of Present Illness - History of Present Illness History of Present Illness: Patient seen and evaluated Admitted for hematuria Hx of , A Fib and Cardiomyopathy s/p AICD Currently denies chest pain and dyspnea Review Of Systems Except As Marked, All Systems Reviewed And Found Negative. Cardiovascular: Negative for: Chest Pain Respiratory: Negative for: Shortness of Breath Gastrointestinal: Positive for: Abdominal Pain Genitourinary: Positive for: Dysuria, Hematuria Musculoskeletal: Positive for: Back Pain Skin: Negative for: Rash Neurological: Negative for: Weakness, Numbness Physical Exam - Physical Exam Appears: Chronically Ill, Other (Uncomfortable in pain) Skin: Normal Color, Warm, Dry Head: Atraumatic, Normacephalic Eye(s): bilateral: PERRL, EOMI Neck: Normal ROM, Supple Respiratory: Normal Breath Sounds, No Accessory Muscle Use Gastrointestinal/Abdominal: Soft, Tenderness (suprapubic) Back: CVA Tenderness (right) Extremity: Normal ROM Neurological/Psych: Oriented x3, Normal Motor, Normal Sensation Past Patient History - Infectious Disease Hx of Infectious Diseases: None - Tetanus Immunizations Tetanus Immunization: Unknown - Past Medical History & Family History Past Medical History?: Yes - Past Social History Smoking Status: Never Smoked - CARDIAC Hx Hypercholesterolemia: Yes Hx Hypertension: Yes - PULMONARY Hx Chronic Obstructive Pulmonary Disease (COPD): No - NEUROLOGICAL Hx Neurological Disorder: No - HEENT Hx HEENT Problems: No - RENAL Hx Chronic Kidney Disease: No - ENDOCRINE/METABOLIC Hx Hypothyroidism: No - HEMATOLOGICAL/ONCOLOGICAL Hx Anemia: Yes - INTEGUMENTARY Hx Dermatological Problems: No - MUSCULOSKELETAL/RHEUMATOLOGICAL Hx Arthritis: Yes - GASTROINTESTINAL Hx Gastrointestinal Disorders: No - GENITOURINARY/GYNECOLOGICAL Hx Genitourinary Disorders: Yes Hx Hematuria: Yes Hx Incontinence: Yes Hx Urinary Tract Infection: Yes - PSYCHIATRIC Hx Anxiety: Yes Hx Depression: Yes Hx Substance Use: No - SURGICAL HISTORY Hx Surgeries: Yes Hx Hysterectomy: Yes Other/Comment: PACEMAKER- 2015 ? FOR LOW HEART RATE - ANESTHESIA Hx Anesthesia: Yes Hx Anesthesia Reactions: No Meds Allergies/Adverse Reactions: Allergies Allergy/AdvReac Type Severity Reaction Status Date / Time No Known Allergies Allergy Verified 02/24/18 20:34 - Medications Medications: Current Medications Acetaminophen (Tylenol 325mg Tab) 650 mg PO Q6 PRN PRN Reason: Fever >100.4 F Last Admin: 02/28/18 13:08 Dose: 650 mg Aspirin (Ecotrin) 81 mg PO DAILY [facility] Last Admin: 02/28/18 09:04 Dose: 81 mg Clonazepam (Klonopin) 0.5 mg PO DAILY PRN PRN Reason: Anxiety Last Admin: 02/28/18 09:03 Dose: 0.5 mg Famotidine (Pepcid) 20 mg PO DAILY [facility] Last Admin: 02/28/18 09:10 Dose: 20 mg Ciprofloxacin (Cipro 400mg/200ml Dsw) 400 mg in 200 mls @ 133 mls/hr IVPB Q12H MAX PRN Reason: Protocol Last Admin: 02/28/18 13:49 Dose: 133 mls/hr Sodium Chloride (Sodium Chloride 0.9%) 1,000 mls @ 40 mls/hr IV .Q24H [facility] Last Admin: 02/27/18 19:57 Dose: Not Given Insulin Aspart (Novolog) 0 unit SC ACHS [facility] PRN Reason: Protocol Last Admin: 02/28/18 17:10 Dose: Not Given Lactulose (Enulose) 20 gm PO DAILY PRN PRN Reason: Constipation Last Admin: 02/26/18 21:41 Dose: 20 gm Losartan Potassium (Cozaar) 50 mg PO HS [facility] Last Admin: 02/27/18 21:34 Dose: 50 mg Metoprolol Tartrate (Lopressor) 100 mg PO Q12 [facility] Last Admin: 02/28/18 09:03 Dose: 100 mg Mirtazapine (Remeron) 30 mg PO HS [facility] Last Admin: 02/27/18 21:33 Dose: 30 mg Morphine Sulfate (Morphine) 2 mg IVP Q3 PRN PRN Reason: Pain, moderate (4-7) Multivitamins (Hexavitamin) 1 tab PO DAILY [facility] Last Admin: 02/28/18 09:03 Dose: 1 tab Phenazopyridine HCl (Pyridium) 200 mg PO TIDPC [facility] Last Admin: 02/28/18 18:06 Dose: 200 mg Pneumococcal Polyvalent Vaccine (Pneumovax 23 Vaccine) 0.5 ml IM .ONCE ONE Stop: 03/01/18 10:01 Tamsulosin HCl (Flomax) 0.4 mg PO DAILY [facility] Last Admin: 02/28/18 09:03 Dose: 0.4 mg Tramadol HCl (Ultram) 50 mg PO Q6 PRN PRN Reason: Pain, Mild (1-3) Last Admin: 02/28/18 03:00 Dose: 50 mg Results - Vital Signs Recent Vital Signs: Last Vital Signs Temp 98.0 F 02/28/18 15:03 Pulse 74 02/28/18 16:00 Resp 20 02/28/18 15:03 BP 102/69 02/28/18 15:03 Pulse Ox 94 L 02/28/18 15:03 - Labs Result Diagrams: 02/28/18 07:17 02/28/18 07:17 Labs: Laboratory Results - last 24 hr 02/28/18 02/28/18 02/28/18 07:10 07:17 07:17 WBC 8.9 RBC 4.07 Hgb 12.4 Hct 36.7 MCV 90.1 MCH 30.5 MCHC 33.9 RDW 13.7 Plt Count 254 MPV 8.8 PT INR APTT Sodium 144 Potassium 4.0 Chloride 108 H Carbon Dioxide 24 Anion Gap 16 BUN 12 Creatinine 1.0 Est GFR ( Amer) > 60 Est GFR (Non-Af Amer) 57 POC Glucose (mg/dL) 105 Random Glucose 96 Calcium 8.7 Total Creatine Kinase CK-MB (Mass) Troponin I 02/28/18 02/28/18 02/28/18 09:11 11:00 12:57 WBC RBC Hgb Hct MCV MCH MCHC RDW Plt Count MPV PT 16.4 H INR 1.5 APTT 45 H D Sodium Potassium Chloride Carbon Dioxide Anion Gap BUN Creatinine Est GFR ( Amer) Est GFR (Non-Af Amer) POC Glucose (mg/dL) 130 H Random Glucose Calcium Total Creatine Kinase 59 CK-MB (Mass) 0.57 Troponin I < 0.0120 02/28/18 02/28/18 16:13 21:26 WBC RBC Hgb Hct MCV MCH MCHC RDW Plt Count MPV PT INR APTT Sodium Potassium Chloride Carbon Dioxide Anion Gap BUN Creatinine Est GFR ( Amer) Est GFR (Non-Af Amer) POC Glucose (mg/dL) 81 103 Random Glucose Calcium Total Creatine Kinase CK-MB (Mass) Troponin I Assessment & Plan - Assessment and Plan (Free Text) Assessment: (1) Atrial fibrillation with rapid ventricular response Status: Acute No anticoagulation for now due to hematuria (2) Hematuria Assessment and Plan: R/O nephrolithiasis, ureterolituhiasis Kidney U/S Urology eval urine cultures Status: Acute (3) Acute urinary tract infection Status: Acute Priority: High (4) Hx of Aortic stenosis/AR Assessment and Plan: Will check ECHO If symptomatic will consider TAVR as out patient (5) Cardiomyopathy s/p AICD Status: Acute Priority: High
--- NOTE | 2018-02-28 22:42 | CON ---
DATE: 02/27/2018 HISTORY OF PRESENT ILLNESS: The patient a 57-year-old [place] female, who was admitted to the hospital the second time because of lower abdominal pain and hematuria. The patient had CT scan before, which showed right hydro, no evidence of any stone. the bladder and thick wall bladder. On this admission, renal ultra revealed right hydro. The patient is complaining of pelvic pain and hematuria, on and off. No history of passing stone. PHYSICAL EXAMINATION: ABDOMEN: Soft, suprapubic tenderness. No mass palpable. No flank tenderness. LABORATORY DATA: UA; many rbc, few wbc. IMPRESSION: Hematuria and right hydronephrosis. PLAN: CT urogram and urine cytology. I will follow her. Chary Kidd MD
[2018-03-01] MEDS: Ciprofloxacin 400mg/200ml D5W 400 MG/200 ML BAG IVPB SCH ×3 (01:51→17:44)
[2018-03-01] MEDS: Sodium Chloride 0.9% 1,000 ML IV SCH (02:02)
[2018-03-01 07:37] LABS: BASO % 0.5 % (0.0-2.0); EOS # 0.4 K/uL (0.0-0.7); EOS % 5.2 % (0.0-4.0); HEMOGLOBIN 12.2 g/dL (11.0-16.0); LYMPH # 2.2 K/uL (1.0-4.3); LYMPH % 32.1 % (20.0-40.0); MEAN CELL VOLUME 90.7 fL (81.0-99.0); MEAN CORPUSCULAR HEMOGLOBIN 30.6 pg (27.0-31.0); MEAN CORPUSCULAR HGB CONC 33.8 g/dL (33.0-37.0); MEAN PLATELET VOLUME 8.9 fL (7.2-11.7); MONO # 0.8 K/uL (0.0-0.8); NEUT # 3.4 K/uL (1.8-7.0); NEUT % 50.2 % (50.0-75.0); NRBC % 0.1 % (0.0-2.0); RBC 3.97 Mil/uL (3.80-5.20); RED CELL DISTRIBUTION WIDTH 13.8 % (11.5-14.5); WHITE BLOOD COUNT 6.8 K/uL (4.8-10.8)
[2018-03-01 07:49] LABS: BLOOD UREA NITROGEN 13 mg/dL (7-17); CALCIUM 8.4 mg/dl (8.6-10.4); GFR AFRICAN-AMERICAN > 60; GFR NON-AFRICAN AMERICAN > 60
[2018-03-01] MEDS: (Novolog) Insulin Aspart, Recombinant 100 u/ml 10 ml vial SC SCH ×4 (08:10→22:25)
--- NOTE | 2018-03-01 09:32 | CP.PCM.PN ---
Subjective - Date & Time of Evaluation Date of Evaluation: 02/28/18 Time of Evaluation: 19:00 - Subjective Subjective: PT WAS C/O PALPITATIONS AND MILD CHEST PRESSURE. PT was SEEN BY ROTARY DRUM DYER. CURRENTLY DENIES PALPITATIONS OR CHEST PAIN. ALSO DENIES H/A, DIZZINESS, SOB. STILL HAS INTERMITTENT SUPRAPUBIC PAIN. ON EXAM HR 86, RR 18. Objective - Vital Signs/Intake and Output Vital Signs (last 24 hours): Temp Pulse Resp BP Pulse Ox 97.9 F 85 18 112/64 98 03/01/18 07:25 03/01/18 07:25 03/01/18 07:25 03/01/18 07:25 03/01/18 07:25 Intake and Output: 03/01/18 03/01/18 06:59 18:59 Intake Total 500 Balance 500 - Medications Medications: Current Medications Acetaminophen (Tylenol 325mg Tab) 650 mg PO Q6 PRN PRN Reason: Fever >100.4 F Last Admin: 02/28/18 13:08 Dose: 650 mg Aspirin (Ecotrin) 81 mg PO DAILY [facility] Last Admin: 02/28/18 09:04 Dose: 81 mg Clonazepam (Klonopin) 0.5 mg PO DAILY PRN PRN Reason: Anxiety Last Admin: 02/28/18 09:03 Dose: 0.5 mg Famotidine (Pepcid) 20 mg PO DAILY [facility] Last Admin: 02/28/18 09:10 Dose: 20 mg Ciprofloxacin (Cipro 400mg/200ml Dsw) 400 mg in 200 mls @ 133 mls/hr IVPB Q12H [facility] PRN Reason: Protocol Last Admin: 03/01/18 01:51 Dose: 133 mls/hr Sodium Chloride (Sodium Chloride 0.9%) 1,000 mls @ 40 mls/hr IV .Q24H MAX Last Admin: 03/01/18 02:02 Dose: 40 mls/hr Insulin Aspart (Novolog) 0 unit SC ACHS [facility] PRN Reason: Protocol Last Admin: 03/01/18 08:10 Dose: Not Given Lactulose (Enulose) 20 gm PO DAILY PRN PRN Reason: Constipation Last Admin: 02/26/18 21:41 Dose: 20 gm Losartan Potassium (Cozaar) 50 mg PO HS [facility] Last Admin: 02/28/18 22:42 Dose: Not Given Metoprolol Tartrate (Lopressor) 100 mg PO Q12 [facility] Last Admin: 02/28/18 22:39 Dose: 100 mg Mirtazapine (Remeron) 30 mg PO HS [facility] Last Admin: 02/28/18 22:40 Dose: 30 mg Morphine Sulfate (Morphine) 2 mg IVP Q3 PRN PRN Reason: Pain, moderate (4-7) Last Admin: 02/28/18 22:36 Dose: 2 mg Multivitamins (Hexavitamin) 1 tab PO DAILY [facility] Last Admin: 02/28/18 09:03 Dose: 1 tab Pneumococcal Polyvalent Vaccine (Pneumovax 23 Vaccine) 0.5 ml IM .ONCE ONE Stop: 03/01/18 10:01 Tamsulosin HCl (Flomax) 0.4 mg PO DAILY [facility] Last Admin: 02/28/18 09:03 Dose: 0.4 mg Tramadol HCl (Ultram) 50 mg PO Q6 PRN PRN Reason: Pain, Mild (1-3) Last Admin: 03/01/18 00:01 Dose: 50 mg - Labs Labs: 03/01/18 07:29 03/01/18 07:29 PT 16.4 SECONDS (9.7-12.2) H 02/28/18 12:57 INR 1.5 02/28/18 12:57 APTT 45 SECONDS (21-34) H D 02/28/18 12:57 - Constitutional Appears: No Acute Distress - Head Exam Head Exam: ATRAUMATIC, NORMAL INSPECTION, NORMOCEPHALIC - Eye Exam Eye Exam: EOMI, Normal appearance, PERRL Pupil Exam: NORMAL ACCOMODATION, PERRL - Neck Exam Neck Exam: Full ROM, Normal Inspection. absent: Lymphadenopathy - Respiratory Exam Respiratory Exam: Clear to Ausculation Bilateral, NORMAL BREATHING PATTERN - Cardiovascular Exam Cardiovascular Exam: REGULAR RHYTHM, +S1, +S2. absent: Murmur - GI/Abdominal Exam GI & Abdominal Exam: Soft, Normal Bowel Sounds. absent: Tenderness Assessment and Plan (1) Hematuria Status: Acute (2) Acute urinary tract infection Status: Acute (3) Atrial fibrillation with rapid ventricular response Status: Acute
--- NOTE | 2018-03-01 09:33 | CP.PCM.PN ---
Subjective - Date & Time of Evaluation Date of Evaluation: 03/01/18 Time of Evaluation: 20:00 - Subjective Subjective: PT seen and examined at bedside Objective - Vital Signs/Intake and Output Vital Signs (last 24 hours): Temp Pulse Resp BP Pulse Ox 97.9 F 85 18 112/64 98 03/01/18 07:25 03/01/18 07:25 03/01/18 07:25 03/01/18 07:25 03/01/18 07:25 Intake and Output: 03/01/18 03/01/18 06:59 18:59 Intake Total 500 Balance 500 - Medications Medications: Current Medications Acetaminophen (Tylenol 325mg Tab) 650 mg PO Q6 PRN PRN Reason: Fever >100.4 F Last Admin: 02/28/18 13:08 Dose: 650 mg Aspirin (Ecotrin) 81 mg PO DAILY [facility] Last Admin: 02/28/18 09:04 Dose: 81 mg Clonazepam (Klonopin) 0.5 mg PO DAILY PRN PRN Reason: Anxiety Last Admin: 02/28/18 09:03 Dose: 0.5 mg Famotidine (Pepcid) 20 mg PO DAILY [facility] Last Admin: 02/28/18 09:10 Dose: 20 mg Ciprofloxacin (Cipro 400mg/200ml Dsw) 400 mg in 200 mls @ 133 mls/hr IVPB Q12H [facility] PRN Reason: Protocol Last Admin: 03/01/18 01:51 Dose: 133 mls/hr Sodium Chloride (Sodium Chloride 0.9%) 1,000 mls @ 40 mls/hr IV .Q24H [facility] Last Admin: 03/01/18 02:02 Dose: 40 mls/hr Insulin Aspart (Novolog) 0 unit SC ACHS [facility] PRN Reason: Protocol Last Admin: 03/01/18 08:10 Dose: Not Given Lactulose (Enulose) 20 gm PO DAILY PRN PRN Reason: Constipation Last Admin: 02/26/18 21:41 Dose: 20 gm Losartan Potassium (Cozaar) 50 mg PO HS [facility] Last Admin: 02/28/18 22:42 Dose: Not Given Metoprolol Tartrate (Lopressor) 100 mg PO Q12 [facility] Last Admin: 02/28/18 22:39 Dose: 100 mg Mirtazapine (Remeron) 30 mg PO HS [facility] Last Admin: 02/28/18 22:40 Dose: 30 mg Morphine Sulfate (Morphine) 2 mg IVP Q3 PRN PRN Reason: Pain, moderate (4-7) Last Admin: 02/28/18 22:36 Dose: 2 mg Multivitamins (Hexavitamin) 1 tab PO DAILY [facility] Last Admin: 02/28/18 09:03 Dose: 1 tab Pneumococcal Polyvalent Vaccine (Pneumovax 23 Vaccine) 0.5 ml IM .ONCE ONE Stop: 03/01/18 10:01 Tamsulosin HCl (Flomax) 0.4 mg PO DAILY [facility] Last Admin: 02/28/18 09:03 Dose: 0.4 mg Tramadol HCl (Ultram) 50 mg PO Q6 PRN PRN Reason: Pain, Mild (1-3) Last Admin: 03/01/18 00:01 Dose: 50 mg - Labs Labs: 03/01/18 07:29 03/01/18 07:29 PT 16.4 SECONDS (9.7-12.2) H 02/28/18 12:57 INR 1.5 02/28/18 12:57 APTT 45 SECONDS (21-34) H D 02/28/18 12:57 Assessment and Plan (1) Hematuria Status: Acute (2) Acute urinary tract infection Status: Acute (3) Atrial fibrillation with rapid ventricular response Status: Acute
[2018-03-01] MEDS ORDERED: Pneumococcal 23-Valent Vaccine IM ONE (10:00)
[2018-03-01] MEDS: Multiple Vitamins Tab PO SCH (10:23)
--- NOTE | 2018-03-01 12:10 | CP.PCM.PCO ---
Physician Communication Note - Physician Communication Note Physician Communication Note: Patient medically cleared for cyst as per Dr. Colon
[2018-03-01] MEDS ORDERED: Lidocaine 2% Jelly (Uro-Jet) ONE ×2 (13:20→14:03)
[2018-03-01] MEDS ORDERED: Ciprofloxacin 400mg/200ml D5W 0 MG/0 ML BAG IVPB ONE (13:20)
[2018-03-01] MEDS ORDERED: Midazolam 2 MG/2 ML VIAL ONE (14:00)
[2018-03-01] MEDS ORDERED: Etomidate 20 mg/10ml Inj IV ONE (14:02)
[2018-03-01] MEDS: HYDROmorphone 0.5 mg/0.5 ml ISec IVP PRN ×2 (15:38→15:48)
--- NOTE | 2018-03-01 22:08 | CP.PCM.PN ---
Subjective - Date & Time of Evaluation Date of Evaluation: 03/01/18 Time of Evaluation: 10:25 - Subjective Subjective: Patient seen and evaluated denies chest pain and dyspnea Review Of Systems Except As Marked, All Systems Reviewed And Found Negative. Cardiovascular: Negative for: Chest Pain Respiratory: Negative for: Shortness of Breath Gastrointestinal: Positive for: Abdominal Pain Genitourinary: Positive for: Dysuria, Hematuria Musculoskeletal: Positive for: Back Pain Skin: Negative for: Rash Neurological: Negative for: Weakness, Numbness Physical Exam - Physical Exam Appears: Chronically Ill, Other (Uncomfortable in pain) Skin: Normal Color, Warm, Dry Head: Atraumatic, Normacephalic Eye(s): bilateral: PERRL, EOMI Neck: Normal ROM, Supple Respiratory: Normal Breath Sounds, No Accessory Muscle Use Gastrointestinal/Abdominal: Soft, Tenderness (suprapubic) Back: CVA Tenderness (right) Extremity: Normal ROM Neurological/Psych: Oriented x3, Normal Motor, Normal Sensation Objective - Vital Signs/Intake and Output Vital Signs (last 24 hours): Temp Pulse Resp BP Pulse Ox 98.2 F 98 H 20 137/87 97 03/01/18 16:55 03/01/18 21:35 03/01/18 16:55 03/01/18 21:35 03/01/18 16:55 Intake and Output: 03/01/18 03/02/18 18:59 06:59 Intake Total 500 Output Total 100 Balance 400 - Medications Medications: Current Medications Acetaminophen (Tylenol 325mg Tab) 650 mg PO Q6 PRN PRN Reason: Fever >100.4 F Last Admin: 02/28/18 13:08 Dose: 650 mg Aspirin (Ecotrin) 81 mg PO DAILY [facility] Last Admin: 03/01/18 10:22 Dose: Not Given Clonazepam (Klonopin) 0.5 mg PO DAILY PRN PRN Reason: Anxiety Last Admin: 03/01/18 17:40 Dose: 0.5 mg Famotidine (Pepcid) 20 mg PO DAILY [facility] Last Admin: 03/01/18 17:42 Dose: 20 mg Ciprofloxacin (Cipro 400mg/200ml Dsw) 400 mg in 200 mls @ 133 mls/hr IVPB Q12H MAX PRN Reason: Protocol Last Admin: 03/01/18 17:44 Dose: 133 mls/hr Sodium Chloride (Sodium Chloride 0.9%) 1,000 mls @ 40 mls/hr IV .Q24H [facility] Last Admin: 03/01/18 02:02 Dose: 40 mls/hr Insulin Aspart (Novolog) 0 unit SC ACHS [facility] PRN Reason: Protocol Last Admin: 03/01/18 17:18 Dose: Not Given Lactulose (Enulose) 20 gm PO DAILY PRN PRN Reason: Constipation Last Admin: 02/26/18 21:41 Dose: 20 gm Losartan Potassium (Cozaar) 50 mg PO HS [facility] Last Admin: 03/01/18 21:31 Dose: 50 mg Metoprolol Tartrate (Lopressor) 100 mg PO Q12 [facility] Last Admin: 03/01/18 10:38 Dose: 100 mg Mirtazapine (Remeron) 30 mg PO HS [facility] Last Admin: 02/28/18 22:40 Dose: 30 mg Morphine Sulfate (Morphine) 2 mg IVP Q3 PRN PRN Reason: Pain, moderate (4-7) Last Admin: 03/01/18 21:31 Dose: 2 mg Multivitamins (Hexavitamin) 1 tab PO DAILY [facility] Last Admin: 03/01/18 10:23 Dose: Not Given Oxybutynin Chloride (Ditropan Xl) 10 mg PO DAILY [facility] Tamsulosin HCl (Flomax) 0.4 mg PO DAILY [facility] Last Admin: 03/01/18 10:23 Dose: Not Given Tramadol HCl (Ultram) 50 mg PO Q6 PRN PRN Reason: Pain, Mild (1-3) Last Admin: 03/01/18 00:01 Dose: 50 mg - Labs Labs: 03/01/18 07:29 03/01/18 07:29 PT 16.4 SECONDS (9.7-12.2) H 02/28/18 12:57 INR 1.5 02/28/18 12:57 APTT 45 SECONDS (21-34) H D 02/28/18 12:57 Assessment and Plan - Assessment and Plan (Free Text) Assessment: (1) Atrial fibrillation with rapid ventricular response Status: Acute No anticoagulation for now due to hematuria (2) Hematuria Assessment and Plan: R/O nephrolithiasis, ureterolituhiasis Kidney U/S Urology eval urine cultures Status: Acute (3) Acute urinary tract infection Status: Acute Priority: High (4) Hx of Aortic stenosis/AR Assessment and Plan: Will check ECHO If symptomatic will consider TAVR as out patient (5) Cardiomyopathy s/p AICD Status: Acute Priority: High
[2018-03-02] MEDS: Ciprofloxacin 400mg/200ml D5W 400 MG/200 ML BAG IVPB SCH ×2 (02:56→15:00)
[2018-03-02] MEDS: Sodium Chloride 0.9% 1,000 ML IV SCH ×2 (05:02→21:49)
--- NOTE | 2018-03-02 06:48 | OP ---
PROCEDURE DATE: 03/01/2018 PREOPERATIVE DIAGNOSIS: Hematuria, thick wall bladder on CAT scan, rule out bladder lesion. POSTOPERATIVE DIAGNOSIS: Hematuria and severe generalized ulceration and inflammation of the bladder wall, most likely interstitial cystitis. PROCEDURE: Cystoscopy, bladder biopsy, and fulguration. TYPE OF ANESTHESIA: Local with light sedation. The patient refused general anesthesia. SURGEON: Chary Kidd MD DESCRIPTION OF PROCEDURE: While the patient in lithotomy position and after putting the local Xylocaine jelly in the urethra and the bladder, the patient was given ampicillin 2 gm IV and given mild sedation; cystoscopy revealed ulceration, redness, multiple lesions on the posterior floor in the left side, some hemorrhagic area in other multiple areas, question of ulceration in the dome of the bladder. Bladder neck showed no evidence of any tumor or ulceration. Biopsy from the posterior and left lateral wall was done. Fulguration done. The patient tolerated the procedure well. After emptying the bladder, there was no active bleeding. The patient was transferred to the recovery room in stable condition. Chary Kidd MD
[2018-03-02] MEDS: (Novolog) Insulin Aspart, Recombinant 100 u/ml 10 ml vial SC SCH ×4 (08:21→21:01)
[2018-03-02 08:35] LABS: SQUAMOUS EPITHIAL 3 /hpf (0-5); URINE BACTERIA RARE (<OCC); URINE BILIRUBIN NEGATIVE (NEGATIVE); URINE BLOOD 3+ (NEGATIVE); URINE CLARITY Hazy (Clear); URINE COLOR Yellow (YELLOW); URINE GLUCOSE (UA) NORMAL (Normal); URINE LEUKOCYTE ESTERASE 2+ Leu/uL (Negative); URINE PROTEIN 3+ mg/dL (NEGATIVE); URINE UROBILINOGEN NORMAL mg/dL (0.2-1.0)
[2018-03-02] MEDS: Oxybutynin XL 10 mg Tab PO SCH (11:15)
[2018-03-02] MEDS: Multiple Vitamins Tab PO SCH (11:16)
--- NOTE | 2018-03-02 12:37 | CARD ---
APPROVED REPORT EXAM: Two-dimensional and M-mode echocardiogram with Doppler and color Doppler. Other Information Quality : GoodRhythm : INDICATION Dizziness and Vertigo Aortic Valve Disease Atrial Fibrillation Chest Pain RISK FACTORS Hypertension 2D DIMENSIONS IVSd1.3 (0.7-1.1cm)LVDd3.3 (3.9-5.9cm) LVOT Diameter2.0 (1.8-2.4cm)PWd1.3 (0.7-1.1cm) LVDs2.4 (2.5-4.0cm)FS (%) 27.9 % LVEF (%)55.3 (>50%) M-Mode DIMENSIONS RVDd3.05 (2.1-3.2cm)Left Atrium (MM)6.64 (2.5-4.0cm) IVSd1.23 (0.7-1.1cm)Aortic Root3.05 (2.2-3.7cm) LVDd3.92 (4.0-5.6cm)Aortic Cusp Exc.0.78 (1.5-2.0cm) PWd1.31 (0.7-1.1cm)FS (%) 30 % LVDs2.74 (2.0-3.8cm)LVEF (%)58 (>50%) Aortic Valve AoV Peak Jcnbmtfw670.5cm/sAoV VTI68.4cmAO Peak GR.54mmHg LVOT Peak Jbyegqnh238.0cm/sLVOT VTI19.68cmAO Mean GR.34mmHg TRISH (VMAX)0.97hz2NEW (VTI)0.17wq5NO P 1/2 [id number] Mitral Valve MV E Hrnayxzx763.5cm/sMV UCH388sfY/A ratio0.0 MVA (PHT)1.47cm2 TDI E/Lateral E'0.0E/Medial E'0.0 Tricuspid Valve TR Peak Bzlhjmgm090tf/sTR Peak Gr.76rqIxRROW12tzDr LEFT VENTRICLE There is mild to moderate concentric left ventricular hypertrophy. The left ventricular systolic function is normal. The left ventricular ejection fraction is within the normal range. There is normal LV segmental wall motion. RIGHT VENTRICLE The right ventricle is normal size. The right ventricular systolic function is normal. There is a pacemaker lead in the right ventricle. ATRIA The left atrium is moderately to severely dilated. The right atrium is moderately dilated. AORTIC VALVE The aortic valve is moderately thickened with decrease systolic excursion. There is mild aortic regurgitation. There is severe valvular aortic stenosis. Calculated aortic valve area is 0.8 cm2 with a mean pressure gradient of 30 mmHg. MITRAL VALVE Mitral annular calcification is mild to moderate. The mitral valve is calcified and displays decreased opening. There is moderate mitral valve stenosis. Mitral regurgitation is mild. TRICUSPID VALVE The tricuspid valve is normal in structure. There is moderate tricuspid regurgitation. Right ventricular systolic pressure is estimated at 49 mmHg. There is moderate pulmonary hypertension. PULMONIC VALVE The pulmonic valve is not well visualized. GREAT VESSELS The aortic root displays mild to moderate sclerocalcific changes. The IVC is normal in size and collapses >50% with inspiration. PERICARDIAL EFFUSION There is a trace pericardial effusion. <Conclusion> There is severe valvular aortic stenosis. Calculated aortic valve area is 0.8 cm2 with a mean pressure gradient of 30 mmHg. There is mild aortic regurgitation. There is moderate mitral valve stenosis. Mitral regurgitation is mild. There is moderate tricuspid regurgitation. Right ventricular systolic pressure is estimated at 49 mmHg compatible with moderate pulmonary hypertension. There is mild to moderate concentric left ventricular hypertrophy. The left ventricular systolic function is normal. The right ventricular systolic function is normal. There is a trace pericardial effusion.
[2018-03-02] MEDS: Oxycodone/Acetaminophen 5/325 mg Tab PO PRN ×2 (15:00→21:48)
--- NOTE | 2018-03-02 22:33 | CP.PCM.PN ---
Subjective - Date & Time of Evaluation Date of Evaluation: 03/02/18 Time of Evaluation: 15:20 - Subjective Subjective: Patient seen and evaluated denies chest pain and dyspnea Review Of Systems Except As Marked, All Systems Reviewed And Found Negative. Cardiovascular: Negative for: Chest Pain Respiratory: Negative for: Shortness of Breath Gastrointestinal: Positive for: Abdominal Pain Genitourinary: Positive for: Dysuria, Hematuria Musculoskeletal: Positive for: Back Pain Skin: Negative for: Rash Neurological: Negative for: Weakness, Numbness Physical Exam - Physical Exam Appears: Chronically Ill, Other (Uncomfortable in pain) Skin: Normal Color, Warm, Dry Head: Atraumatic, Normacephalic Eye(s): bilateral: PERRL, EOMI Neck: Normal ROM, Supple Respiratory: Normal Breath Sounds, No Accessory Muscle Use Gastrointestinal/Abdominal: Soft, Tenderness (suprapubic) Back: CVA Tenderness (right) Extremity: Normal ROM Neurological/Psych: Oriented x3, Normal Motor, Normal Sensation Objective - Vital Signs/Intake and Output Vital Signs (last 24 hours): Temp Pulse Resp BP Pulse Ox 98.8 F 96 H 20 103/73 97 03/02/18 16:08 03/02/18 16:08 03/02/18 16:08 03/02/18 16:08 03/02/18 16:08 Intake and Output: 03/02/18 03/03/18 18:59 06:59 Intake Total 200 Balance 200 - Medications Medications: Current Medications Acetaminophen (Tylenol 325mg Tab) 650 mg PO Q6 PRN PRN Reason: Fever >100.4 F Last Admin: 02/28/18 13:08 Dose: 650 mg Apixaban (Eliquis) 2.5 mg PO BID [facility] Last Admin: 03/02/18 17:21 Dose: 2.5 mg Aspirin (Ecotrin) 81 mg PO DAILY [facility] Last Admin: 03/02/18 11:15 Dose: 81 mg Clonazepam (Klonopin) 0.5 mg PO DAILY PRN PRN Reason: Anxiety Last Admin: 03/01/18 17:40 Dose: 0.5 mg Famotidine (Pepcid) 20 mg PO DAILY [facility] Last Admin: 03/02/18 11:15 Dose: 20 mg Ciprofloxacin (Cipro 400mg/200ml Dsw) 400 mg in 200 mls @ 133 mls/hr IVPB Q12H [facility] PRN Reason: Protocol Last Admin: 03/02/18 15:00 Dose: 133 mls/hr Sodium Chloride (Sodium Chloride 0.9%) 1,000 mls @ 40 mls/hr IV .Q24H [facility] Last Admin: 03/02/18 21:49 Dose: 40 mls/hr Insulin Aspart (Novolog) 0 unit SC ACHS [facility] PRN Reason: Protocol Last Admin: 03/02/18 21:01 Dose: Not Given Lactulose (Enulose) 20 gm PO DAILY PRN PRN Reason: Constipation Last Admin: 02/26/18 21:41 Dose: 20 gm Losartan Potassium (Cozaar) 50 mg PO HS [facility] Last Admin: 03/01/18 21:31 Dose: 50 mg Metoprolol Tartrate (Lopressor) 100 mg PO Q12 [facility] Last Admin: 03/02/18 21:48 Dose: 100 mg Mirtazapine (Remeron) 30 mg PO HS [facility] Last Admin: 03/02/18 21:48 Dose: 30 mg Multivitamins (Hexavitamin) 1 tab PO DAILY [facility] Last Admin: 03/02/18 11:16 Dose: 1 tab Oxybutynin Chloride (Ditropan Xl) 10 mg PO DAILY [facility] Last Admin: 03/02/18 11:15 Dose: 10 mg Oxycodone/Acetaminophen (Percocet 5/325 Mg Tab) 2 tab PO Q4H PRN PRN Reason: Pain, severe (8-10) Stop: 03/05/18 12:39 Last Admin: 03/02/18 21:48 Dose: 2 tab Tamsulosin HCl (Flomax) 0.4 mg PO DAILY [facility] Last Admin: 03/02/18 11:16 Dose: 0.4 mg Tramadol HCl (Ultram) 50 mg PO Q6 PRN PRN Reason: Pain, Mild (1-3) Last Admin: 03/02/18 11:16 Dose: 50 mg - Labs Labs: 03/01/18 07:29 03/01/18 07:29 PT 16.4 SECONDS (9.7-12.2) H 02/28/18 12:57 INR 1.5 02/28/18 12:57 APTT 45 SECONDS (21-34) H D 02/28/18 12:57 Assessment and Plan - Assessment and Plan (Free Text) Assessment: (1) Atrial fibrillation with rapid ventricular response Status: Acute No anticoagulation for now due to hematuria (2) Hematuria Assessment and Plan: R/O nephrolithiasis, ureterolituhiasis Kidney U/S Urology eval urine cultures Status: Acute (3) Acute urinary tract infection Status: Acute Priority: High (4) Hx of Aortic stenosis/AR Assessment and Plan: Will check ECHO If symptomatic will consider TAVR as out patient (5) Cardiomyopathy s/p AICD Status: Acute Priority: High
--- NOTE | 2018-03-02 22:55 | CP.PCM.PN ---
Subjective - Date & Time of Evaluation Date of Evaluation: 03/02/18 Time of Evaluation: 18:35 - Subjective Subjective: Pt seen and examined at bedside Objective - Vital Signs/Intake and Output Vital Signs (last 24 hours): Temp Pulse Resp BP Pulse Ox 98.8 F 96 H 20 103/73 97 03/02/18 16:08 03/02/18 16:08 03/02/18 16:08 03/02/18 16:08 03/02/18 16:08 Intake and Output: 03/02/18 03/03/18 18:59 06:59 Intake Total 200 Balance 200 - Medications Medications: Current Medications Acetaminophen (Tylenol 325mg Tab) 650 mg PO Q6 PRN PRN Reason: Fever >100.4 F Last Admin: 02/28/18 13:08 Dose: 650 mg Apixaban (Eliquis) 2.5 mg PO BID [facility] Last Admin: 03/02/18 17:21 Dose: 2.5 mg Aspirin (Ecotrin) 81 mg PO DAILY [facility] Last Admin: 03/02/18 11:15 Dose: 81 mg Clonazepam (Klonopin) 0.5 mg PO DAILY PRN PRN Reason: Anxiety Last Admin: 03/01/18 17:40 Dose: 0.5 mg Famotidine (Pepcid) 20 mg PO DAILY [facility] Last Admin: 03/02/18 11:15 Dose: 20 mg Ciprofloxacin (Cipro 400mg/200ml Dsw) 400 mg in 200 mls @ 133 mls/hr IVPB Q12H [facility] PRN Reason: Protocol Last Admin: 03/02/18 15:00 Dose: 133 mls/hr Sodium Chloride (Sodium Chloride 0.9%) 1,000 mls @ 40 mls/hr IV .Q24H [facility] Last Admin: 03/02/18 21:49 Dose: 40 mls/hr Insulin Aspart (Novolog) 0 unit SC ACHS [facility] PRN Reason: Protocol Last Admin: 03/02/18 21:01 Dose: Not Given Lactulose (Enulose) 20 gm PO DAILY PRN PRN Reason: Constipation Last Admin: 02/26/18 21:41 Dose: 20 gm Losartan Potassium (Cozaar) 50 mg PO HS [facility] Last Admin: 03/02/18 22:44 Dose: 50 mg Metoprolol Tartrate (Lopressor) 100 mg PO Q12 [facility] Last Admin: 03/02/18 21:48 Dose: 100 mg Mirtazapine (Remeron) 30 mg PO HS [facility] Last Admin: 03/02/18 21:48 Dose: 30 mg Multivitamins (Hexavitamin) 1 tab PO DAILY [facility] Last Admin: 03/02/18 11:16 Dose: 1 tab Oxybutynin Chloride (Ditropan Xl) 10 mg PO DAILY [facility] Last Admin: 03/02/18 11:15 Dose: 10 mg Oxycodone/Acetaminophen (Percocet 5/325 Mg Tab) 2 tab PO Q4H PRN PRN Reason: Pain, severe (8-10) Stop: 03/05/18 12:39 Last Admin: 03/02/18 21:48 Dose: 2 tab Tamsulosin HCl (Flomax) 0.4 mg PO DAILY [facility] Last Admin: 03/02/18 11:16 Dose: 0.4 mg Tramadol HCl (Ultram) 50 mg PO Q6 PRN PRN Reason: Pain, Mild (1-3) Last Admin: 03/02/18 11:16 Dose: 50 mg - Labs Labs: 03/01/18 07:29 03/01/18 07:29 PT 16.4 SECONDS (9.7-12.2) H 02/28/18 12:57 INR 1.5 02/28/18 12:57 APTT 45 SECONDS (21-34) H D 02/28/18 12:57 Assessment and Plan (1) Hematuria Status: Acute (2) Acute urinary tract infection Status: Acute (3) Atrial fibrillation with rapid ventricular response Status: Acute
[2018-03-03] MEDS: Oxycodone/Acetaminophen 5/325 mg Tab PO PRN ×4 (01:44→22:30)
[2018-03-03] MEDS: Ciprofloxacin 400mg/200ml D5W 400 MG/200 ML BAG IVPB SCH ×2 (01:47→14:00)
[2018-03-03] MEDS: (Novolog) Insulin Aspart, Recombinant 100 u/ml 10 ml vial SC SCH ×4 (08:00→22:01)
[2018-03-03] MEDS: Oxybutynin XL 10 mg Tab PO SCH (10:11)
[2018-03-03] MEDS: Multiple Vitamins Tab PO SCH (10:12)
[2018-03-03] MEDS: Sodium Chloride 0.9% 1,000 ML IV SCH ×2 (14:02→21:00)
--- NOTE | 2018-03-03 16:34 | CP.PCM.PN ---
Subjective - Date & Time of Evaluation Date of Evaluation: 03/03/18 Time of Evaluation: 17:00 - Subjective Subjective: pt seen and examined Objective - Vital Signs/Intake and Output Vital Signs (last 24 hours): Temp Pulse Resp BP Pulse Ox 98.3 F 80 20 103/67 98 03/03/18 15:03 03/03/18 15:03 03/03/18 15:03 03/03/18 15:03 03/03/18 15:03 Intake and Output: 03/03/18 03/03/18 06:59 18:59 Intake Total 753 Output Total 350 Balance 403 - Medications Medications: Current Medications Acetaminophen (Tylenol 325mg Tab) 650 mg PO Q6 PRN PRN Reason: Fever >100.4 F Last Admin: 02/28/18 13:08 Dose: 650 mg Apixaban (Eliquis) 2.5 mg PO BID [facility] Last Admin: 03/03/18 10:11 Dose: 2.5 mg Aspirin (Ecotrin) 81 mg PO DAILY [facility] Last Admin: 03/03/18 10:12 Dose: 81 mg Clonazepam (Klonopin) 0.5 mg PO DAILY PRN PRN Reason: Anxiety Last Admin: 03/03/18 01:45 Dose: 0.5 mg Famotidine (Pepcid) 20 mg PO DAILY [facility] Last Admin: 03/03/18 10:12 Dose: 20 mg Ciprofloxacin (Cipro 400mg/200ml Dsw) 400 mg in 200 mls @ 133 mls/hr IVPB Q12H [facility] PRN Reason: Protocol Last Admin: 03/03/18 14:00 Dose: 133 mls/hr Sodium Chloride (Sodium Chloride 0.9%) 1,000 mls @ 40 mls/hr IV .Q24H [facility] Last Admin: 03/03/18 14:02 Dose: 40 mls/hr Insulin Aspart (Novolog) 0 unit SC ACHS [facility] PRN Reason: Protocol Last Admin: 03/03/18 13:26 Dose: Not Given Lactulose (Enulose) 20 gm PO DAILY PRN PRN Reason: Constipation Last Admin: 02/26/18 21:41 Dose: 20 gm Losartan Potassium (Cozaar) 50 mg PO HS [facility] Last Admin: 03/02/18 22:44 Dose: 50 mg Metoprolol Tartrate (Lopressor) 100 mg PO Q12 [facility] Last Admin: 03/03/18 10:12 Dose: 100 mg Mirtazapine (Remeron) 30 mg PO HS [facility] Last Admin: 03/02/18 21:48 Dose: 30 mg Multivitamins (Hexavitamin) 1 tab PO DAILY [facility] Last Admin: 03/03/18 10:12 Dose: 1 tab Oxybutynin Chloride (Ditropan Xl) 10 mg PO DAILY [facility] Last Admin: 03/03/18 10:11 Dose: 10 mg Oxycodone/Acetaminophen (Percocet 5/325 Mg Tab) 2 tab PO Q4H PRN PRN Reason: Pain, severe (8-10) Stop: 03/05/18 12:39 Last Admin: 03/03/18 10:25 Dose: 2 tab Tamsulosin HCl (Flomax) 0.4 mg PO DAILY [facility] Last Admin: 03/03/18 10:12 Dose: 0.4 mg Tramadol HCl (Ultram) 50 mg PO Q6 PRN PRN Reason: Pain, Mild (1-3) Last Admin: 03/03/18 11:15 Dose: 50 mg - Labs Labs: 03/01/18 07:29 03/01/18 07:29 PT 16.4 SECONDS (9.7-12.2) H 02/28/18 12:57 INR 1.5 02/28/18 12:57 APTT 45 SECONDS (21-34) H D 02/28/18 12:57 Assessment and Plan (1) Hematuria Status: Acute (2) Acute urinary tract infection Status: Acute (3) Atrial fibrillation with rapid ventricular response Status: Acute
--- NOTE | 2018-03-03 21:01 | CP.PCM.PN ---
Subjective - Date & Time of Evaluation Date of Evaluation: 03/03/18 Time of Evaluation: 16:20 - Subjective Subjective: Patient seen and evaluated denies chest pain and dyspnea Review Of Systems Except As Marked, All Systems Reviewed And Found Negative. Cardiovascular: Negative for: Chest Pain Respiratory: Negative for: Shortness of Breath Gastrointestinal: Positive for: Abdominal Pain Genitourinary: Positive for: Dysuria, Hematuria Musculoskeletal: Positive for: Back Pain Skin: Negative for: Rash Neurological: Negative for: Weakness, Numbness Physical Exam - Physical Exam Appears: Chronically Ill, Other (Uncomfortable in pain) Skin: Normal Color, Warm, Dry Head: Atraumatic, Normacephalic Eye(s): bilateral: PERRL, EOMI Neck: Normal ROM, Supple Respiratory: Normal Breath Sounds, No Accessory Muscle Use Gastrointestinal/Abdominal: Soft, Tenderness (suprapubic) Back: CVA Tenderness (right) Extremity: Normal ROM Neurological/Psych: Oriented x3, Normal Motor, Normal Sensation Objective - Vital Signs/Intake and Output Vital Signs (last 24 hours): Temp Pulse Resp BP Pulse Ox 98.3 F 80 20 103/67 98 03/03/18 15:03 03/03/18 15:03 03/03/18 15:03 03/03/18 15:03 03/03/18 15:03 Intake and Output: 03/03/18 03/04/18 18:59 06:59 Intake Total 753 Output Total 350 Balance 403 - Medications Medications: Current Medications Acetaminophen (Tylenol 325mg Tab) 650 mg PO Q6 PRN PRN Reason: Fever >100.4 F Last Admin: 02/28/18 13:08 Dose: 650 mg Apixaban (Eliquis) 2.5 mg PO BID [facility] Last Admin: 03/03/18 17:18 Dose: 2.5 mg Aspirin (Ecotrin) 81 mg PO DAILY [facility] Last Admin: 03/03/18 10:12 Dose: 81 mg Clonazepam (Klonopin) 0.5 mg PO DAILY PRN PRN Reason: Anxiety Last Admin: 03/03/18 01:45 Dose: 0.5 mg Famotidine (Pepcid) 20 mg PO DAILY [facility] Last Admin: 03/03/18 10:12 Dose: 20 mg Ciprofloxacin (Cipro 400mg/200ml Dsw) 400 mg in 200 mls @ 133 mls/hr IVPB Q12H [facility] PRN Reason: Protocol Last Admin: 03/03/18 14:00 Dose: 133 mls/hr Sodium Chloride (Sodium Chloride 0.9%) 1,000 mls @ 40 mls/hr IV .Q24H [facility] Last Admin: 03/03/18 14:02 Dose: 40 mls/hr Insulin Aspart (Novolog) 0 unit SC ACHS [facility] PRN Reason: Protocol Last Admin: 03/03/18 16:55 Dose: Not Given Lactulose (Enulose) 20 gm PO DAILY PRN PRN Reason: Constipation Last Admin: 02/26/18 21:41 Dose: 20 gm Losartan Potassium (Cozaar) 50 mg PO HS [facility] Last Admin: 03/02/18 22:44 Dose: 50 mg Metoprolol Tartrate (Lopressor) 100 mg PO Q12 [facility] Last Admin: 03/03/18 10:12 Dose: 100 mg Mirtazapine (Remeron) 30 mg PO HS [facility] Last Admin: 03/02/18 21:48 Dose: 30 mg Multivitamins (Hexavitamin) 1 tab PO DAILY [facility] Last Admin: 03/03/18 10:12 Dose: 1 tab Oxybutynin Chloride (Ditropan Xl) 10 mg PO DAILY [facility] Last Admin: 03/03/18 10:11 Dose: 10 mg Oxycodone/Acetaminophen (Percocet 5/325 Mg Tab) 2 tab PO Q4H PRN PRN Reason: Pain, severe (8-10) Stop: 03/05/18 12:39 Last Admin: 03/03/18 17:18 Dose: 2 tab Tamsulosin HCl (Flomax) 0.4 mg PO DAILY [facility] Last Admin: 03/03/18 10:12 Dose: 0.4 mg Tramadol HCl (Ultram) 50 mg PO Q6 PRN PRN Reason: Pain, Mild (1-3) Last Admin: 03/03/18 11:15 Dose: 50 mg - Labs Labs: 03/01/18 07:29 03/01/18 07:29 PT 16.4 SECONDS (9.7-12.2) H 02/28/18 12:57 INR 1.5 02/28/18 12:57 APTT 45 SECONDS (21-34) H D 02/28/18 12:57 Assessment and Plan - Assessment and Plan (Free Text) Assessment: (1) Atrial fibrillation with rapid ventricular response Status: Acute Tolerating Eliquis well (2) Hematuria Resolved (3) Acute urinary tract infection Status: Acute Priority: High (4) Hx of Aortic stenosis/AR TAVR as out patient (5) Cardiomyopathy s/p AICD Status: Acute Priority: High
[2018-03-04] MEDS: Ciprofloxacin 400mg/200ml D5W 400 MG/200 ML BAG IVPB SCH ×2 (01:35→13:50)
[2018-03-04] MEDS: Oxycodone/Acetaminophen 5/325 mg Tab PO PRN ×3 (05:47→17:18)
[2018-03-04] MEDS: (Novolog) Insulin Aspart, Recombinant 100 u/ml 10 ml vial SC SCH ×4 (08:09→21:36)
[2018-03-04] MEDS: Multiple Vitamins Tab PO SCH (10:17)
[2018-03-04] MEDS: Oxybutynin XL 10 mg Tab PO SCH (10:17)
[2018-03-04] MEDS: Sodium Chloride 0.9% 1,000 ML IV SCH ×2 (12:38→20:15)
--- NOTE | 2018-03-04 21:23 | CP.PCM.PN ---
Subjective - Date & Time of Evaluation Date of Evaluation: 03/04/18 Time of Evaluation: 15:20 Objective - Vital Signs/Intake and Output Vital Signs (last 24 hours): Temp Pulse Resp BP Pulse Ox 98.0 F 76 20 121/87 98 03/04/18 15:05 03/04/18 15:05 03/04/18 15:05 03/04/18 15:05 03/04/18 15:05 Intake and Output: 03/04/18 03/05/18 18:59 06:59 Intake Total 900 Balance 900 - Medications Medications: Current Medications Acetaminophen (Tylenol 325mg Tab) 650 mg PO Q6 PRN PRN Reason: Fever >100.4 F Last Admin: 02/28/18 13:08 Dose: 650 mg Apixaban (Eliquis) 2.5 mg PO BID [facility] Last Admin: 03/04/18 17:18 Dose: 2.5 mg Aspirin (Ecotrin) 81 mg PO DAILY [facility] Last Admin: 03/04/18 10:17 Dose: 81 mg Clonazepam (Klonopin) 0.5 mg PO DAILY PRN PRN Reason: Anxiety Last Admin: 03/03/18 01:45 Dose: 0.5 mg Docusate Sodium (Colace) 100 mg PO TID [facility] Last Admin: 03/04/18 17:18 Dose: 100 mg Famotidine (Pepcid) 20 mg PO DAILY [facility] Last Admin: 03/04/18 10:17 Dose: 20 mg Ciprofloxacin (Cipro 400mg/200ml Dsw) 400 mg in 200 mls @ 133 mls/hr IVPB Q12H [facility] PRN Reason: Protocol Last Admin: 03/04/18 13:50 Dose: 133 mls/hr Sodium Chloride (Sodium Chloride 0.9%) 1,000 mls @ 40 mls/hr IV .Q24H [facility] Last Admin: 03/04/18 12:38 Dose: 40 mls/hr Insulin Aspart (Novolog) 0 unit SC ACHS [facility] PRN Reason: Protocol Last Admin: 03/04/18 16:53 Dose: Not Given Lactulose (Enulose) 20 gm PO DAILY PRN PRN Reason: Constipation Last Admin: 03/04/18 16:10 Dose: 20 gm Losartan Potassium (Cozaar) 50 mg PO [facility] Last Admin: 03/03/18 22:30 Dose: 50 mg Metoprolol Tartrate (Lopressor) 100 mg PO Q12 [facility] Last Admin: 03/04/18 10:17 Dose: 100 mg Mirtazapine (Remeron) 30 mg PO HS [facility] Last Admin: 03/03/18 21:27 Dose: 30 mg Multivitamins (Hexavitamin) 1 tab PO DAILY [facility] Last Admin: 03/04/18 10:17 Dose: 1 tab Oxybutynin Chloride (Ditropan Xl) 10 mg PO DAILY [facility] Last Admin: 03/04/18 10:17 Dose: 10 mg Oxycodone/Acetaminophen (Percocet 5/325 Mg Tab) 2 tab PO Q4H PRN PRN Reason: Pain, severe (8-10) Stop: 03/05/18 12:39 Last Admin: 03/04/18 17:18 Dose: 2 tab Tamsulosin HCl (Flomax) 0.4 mg PO DAILY [facility] Last Admin: 03/04/18 10:17 Dose: 0.4 mg Tramadol HCl (Ultram) 50 mg PO Q6 PRN PRN Reason: Pain, Mild (1-3) Last Admin: 03/04/18 00:02 Dose: 50 mg - Labs Labs: 03/01/18 07:29 03/01/18 07:29 PT 16.4 SECONDS (9.7-12.2) H 02/28/18 12:57 INR 1.5 02/28/18 12:57 APTT 45 SECONDS (21-34) H D 02/28/18 12:57
--- NOTE | 2018-03-05 00:25 | CP.PCM.PN ---
Subjective - Date & Time of Evaluation Date of Evaluation: 03/04/18 Time of Evaluation: 19:00 - Subjective Subjective: Patient SEEN AND EXAMINED AT BEDSIDE Objective - Vital Signs/Intake and Output Vital Signs (last 24 hours): Temp Pulse Resp BP Pulse Ox 98.0 F 76 20 121/87 98 03/04/18 15:05 03/04/18 15:05 03/04/18 15:05 03/04/18 15:05 03/04/18 15:05 Intake and Output: 03/04/18 03/05/18 18:59 06:59 Intake Total 900 Balance 900 - Medications Medications: Current Medications Acetaminophen (Tylenol 325mg Tab) 650 mg PO Q6 PRN PRN Reason: Fever >100.4 F Last Admin: 02/28/18 13:08 Dose: 650 mg Apixaban (Eliquis) 2.5 mg PO BID [facility] Last Admin: 03/04/18 17:18 Dose: 2.5 mg Aspirin (Ecotrin) 81 mg PO DAILY [facility] Last Admin: 03/04/18 10:17 Dose: 81 mg Clonazepam (Klonopin) 0.5 mg PO DAILY PRN PRN Reason: Anxiety Last Admin: 03/03/18 01:45 Dose: 0.5 mg Docusate Sodium (Colace) 100 mg PO TID [facility] Last Admin: 03/04/18 17:18 Dose: 100 mg Famotidine (Pepcid) 20 mg PO DAILY [facility] Last Admin: 03/04/18 10:17 Dose: 20 mg Ciprofloxacin (Cipro 400mg/200ml Dsw) 400 mg in 200 mls @ 133 mls/hr IVPB Q12H [facility] PRN Reason: Protocol Last Admin: 03/04/18 13:50 Dose: 133 mls/hr Sodium Chloride (Sodium Chloride 0.9%) 1,000 mls @ 40 mls/hr IV .Q24H [facility] Last Admin: 03/04/18 20:15 Dose: Not Given Insulin Aspart (Novolog) 0 unit SC ACHS [facility] PRN Reason: Protocol Last Admin: 03/04/18 21:36 Dose: Not Given Lactulose (Enulose) 20 gm PO DAILY PRN PRN Reason: Constipation Last Admin: 03/04/18 16:10 Dose: 20 gm Losartan Potassium (Cozaar) 50 mg PO [facility] Last Admin: 03/04/18 22:58 Dose: 50 mg Metoprolol Tartrate (Lopressor) 100 mg PO Q12 [facility] Last Admin: 03/04/18 21:30 Dose: 100 mg Mirtazapine (Remeron) 30 mg PO HS [facility] Last Admin: 03/04/18 21:30 Dose: 30 mg Multivitamins (Hexavitamin) 1 tab PO DAILY [facility] Last Admin: 03/04/18 10:17 Dose: 1 tab Oxybutynin Chloride (Ditropan Xl) 10 mg PO DAILY [facility] Last Admin: 03/04/18 10:17 Dose: 10 mg Oxycodone/Acetaminophen (Percocet 5/325 Mg Tab) 2 tab PO Q4H PRN PRN Reason: Pain, severe (8-10) Stop: 03/05/18 12:39 Last Admin: 03/04/18 17:18 Dose: 2 tab Tamsulosin HCl (Flomax) 0.4 mg PO DAILY [facility] Last Admin: 03/04/18 10:17 Dose: 0.4 mg Tramadol HCl (Ultram) 50 mg PO Q6 PRN PRN Reason: Pain, Mild (1-3) Last Admin: 03/04/18 00:02 Dose: 50 mg - Labs Labs: 03/01/18 07:29 03/01/18 07:29 PT 16.4 SECONDS (9.7-12.2) H 02/28/18 12:57 INR 1.5 02/28/18 12:57 APTT 45 SECONDS (21-34) H D 02/28/18 12:57 Assessment and Plan (1) Hematuria Status: Acute (2) Acute urinary tract infection Status: Acute (3) Atrial fibrillation with rapid ventricular response Status: Acute
[2018-03-05] MEDS: Ciprofloxacin 400mg/200ml D5W 400 MG/200 ML BAG IVPB SCH ×2 (01:38→14:16)
[2018-03-05] MEDS: Oxycodone/Acetaminophen 5/325 mg Tab PO PRN ×2 (02:42→12:38)
[2018-03-05] MEDS: (Novolog) Insulin Aspart, Recombinant 100 u/ml 10 ml vial SC SCH ×4 (07:48→21:38)
[2018-03-05 08:43] VITALS: RESP 20
[2018-03-05] MEDS: Multiple Vitamins Tab PO SCH (10:20)
[2018-03-05] MEDS: Oxybutynin XL 10 mg Tab PO SCH (10:20)
[2018-03-05] MEDS: Sodium Chloride 0.9% 1,000 ML IV SCH ×2 (14:19→20:15)
[2018-03-06] MEDS: Ciprofloxacin 400mg/200ml D5W 400 MG/200 ML BAG IVPB SCH ×2 (01:39→13:32)
[2018-03-06] MEDS: (Novolog) Insulin Aspart, Recombinant 100 u/ml 10 ml vial SC SCH ×3 (08:30→16:22)
--- NOTE | 2018-03-06 09:17 | CP.PCM.PN ---
Subjective - Date & Time of Evaluation Date of Evaluation: 03/05/18 Time of Evaluation: 02:00 - Subjective Subjective: Pt is a 57 year old female who has h/o cardiac problems, she is not sure according to her she have defibrillator due to arrytmia came in with c/o Lower abdominal pain in pelvic area associated with painful hematuria. She was evaluated in this ED before this visit with labs, urinalysis and CT scan of abdomen/pelvis. She was discharged home on Cipro which she is taking without relief. Objective - Vital Signs/Intake and Output Vital Signs (last 24 hours): Temp Pulse Resp BP Pulse Ox 98.8 F 78 20 153/99 H 98 03/06/18 07:00 03/06/18 07:00 03/06/18 07:00 03/06/18 07:00 03/06/18 07:00 Intake and Output: 03/06/18 03/06/18 06:59 18:59 Output Total 450 Balance -450 - Medications Medications: Current Medications Acetaminophen (Tylenol 325mg Tab) 650 mg PO Q6 PRN PRN Reason: Fever >100.4 F Last Admin: 02/28/18 13:08 Dose: 650 mg Apixaban (Eliquis) 2.5 mg PO BID [facility] Last Admin: 03/05/18 17:43 Dose: 2.5 mg Aspirin (Ecotrin) 81 mg PO DAILY [facility] Last Admin: 03/05/18 10:20 Dose: 81 mg Clonazepam (Klonopin) 0.5 mg PO DAILY PRN PRN Reason: Anxiety Last Admin: 03/05/18 01:43 Dose: 0.5 mg Docusate Sodium (Colace) 100 mg PO TID [facility] Last Admin: 03/05/18 17:43 Dose: 100 mg Famotidine (Pepcid) 20 mg PO DAILY [facility] Last Admin: 03/05/18 10:20 Dose: 20 mg Ciprofloxacin (Cipro 400mg/200ml Dsw) 400 mg in 200 mls @ 133 mls/hr IVPB Q12H [facility] PRN Reason: Protocol Last Admin: 03/06/18 01:39 Dose: 133 mls/hr Sodium Chloride (Sodium Chloride 0.9%) 1,000 mls @ 40 mls/hr IV .Q24H [facility] Last Admin: 03/05/18 20:15 Dose: Not Given Insulin Aspart (Novolog) 0 unit SC ACHS [facility] PRN Reason: Protocol Last Admin: 03/06/18 08:30 Dose: Not Given Lactulose (Enulose) 20 gm PO DAILY PRN PRN Reason: Constipation Last Admin: 03/04/18 16:10 Dose: 20 gm Losartan Potassium (Cozaar) 50 mg PO HS [facility] Last Admin: 03/05/18 21:23 Dose: 50 mg Metoprolol Tartrate (Lopressor) 100 mg PO Q12 [facility] Last Admin: 03/05/18 21:22 Dose: 100 mg Mirtazapine (Remeron) 30 mg PO HS [facility] Last Admin: 03/05/18 21:23 Dose: 30 mg Multivitamins (Hexavitamin) 1 tab PO DAILY [facility] Last Admin: 03/05/18 10:20 Dose: 1 tab Oxybutynin Chloride (Ditropan Xl) 10 mg PO DAILY [facility] Last Admin: 03/05/18 10:20 Dose: 10 mg Tamsulosin HCl (Flomax) 0.4 mg PO DAILY [facility] Last Admin: 03/05/18 10:20 Dose: 0.4 mg Tramadol HCl (Ultram) 50 mg PO Q6 PRN PRN Reason: Pain, Mild (1-3) Last Admin: 03/05/18 22:55 Dose: 50 mg - Labs Labs: 03/01/18 07:29 03/01/18 07:29 PT 16.4 SECONDS (9.7-12.2) H 02/28/18 12:57 INR 1.5 02/28/18 12:57 APTT 45 SECONDS (21-34) H D 02/28/18 12:57 - Constitutional Appears: Well, Non-toxic - Head Exam Head Exam: ATRAUMATIC, NORMAL INSPECTION, NORMOCEPHALIC - Eye Exam Eye Exam: EOMI, Normal appearance Pupil Exam: NORMAL ACCOMODATION - ENT Exam ENT Exam: Mucous Membranes Moist, Normal Exam - Neck Exam Neck Exam: Full ROM, Normal Inspection - Respiratory Exam Respiratory Exam: Clear to Ausculation Bilateral, NORMAL BREATHING PATTERN - Cardiovascular Exam Cardiovascular Exam: REGULAR RHYTHM, +S1, +S2 - GI/Abdominal Exam GI & Abdominal Exam: Soft, Normal Bowel Sounds - Extremities Exam Extremities Exam: Full ROM, Normal Inspection - Neurological Exam Neurological Exam: Alert, Awake, CN II-XII Intact Assessment and Plan (1) Complicated urinary tract infection Status: Acute (2) Hematuria Status: Acute (3) Acute urinary tract infection Status: Acute (4) Atrial fibrillation with rapid ventricular response Status: Acute (5) Chest pain Status: Acute (6) Chronic a-fib Status: Acute (7) Chronic knee pain Status: Acute (8) Dizziness Status: Acute (9) Dysuria Status: Acute (10) Headache Status: Acute (11) Headache above the eye region Status: Acute (12) Nausea Status: Acute (13) UTI (lower urinary tract infection) Status: Acute (14) Urinary retention Status: Acute (15) Urinary tract infection Status: Acute (16) Anxiety and depression Status: Chronic (17) HTN (hypertension) Status: Chronic (18) Persistent atrial fibrillation Status: Chronic - Assessment and Plan (Free Text) Assessment: Pt is a 57 year old female who has h/o cardiac problems, she is not sure according to her she has weak heart and used to have defibrillator due to arrytmia came in with c/o Lower abdominal pain in pelvic area associated with painful hematuria. She was evaluated in this ED , with labs, urinalysis and CT scan of abdomen/pelvis. She was discharged home on Cipro which she is taking without relief. Plan: (1) Hematuria Assessment and Plan: R/O nephrolithiasis, ureterolituhiasis Kidney U/S Urology eval urine cultures Status: Acute (2) Acute urinary tract infection Status: Acute Priority: High (3) Atrial fibrillation with rapid ventricular response Status: Acute
[2018-03-06] MEDS: Multiple Vitamins Tab PO SCH (10:38)
[2018-03-06] MEDS: Oxybutynin XL 10 mg Tab PO SCH (10:39)
[2018-03-06 11:24] LABS: BASO # 0.1 K/uL (0.0-0.2); BASO % 0.7 % (0.0-2.0); EOS # 0.2 K/uL (0.0-0.7); EOS % 2.8 % (0.0-4.0); HEMOGLOBIN 11.3 g/dL (11.0-16.0); LYMPH # 1.5 K/uL (1.0-4.3); LYMPH % 22.6 % (20.0-40.0); MEAN CELL VOLUME 91.6 fL (81.0-99.0); MEAN CORPUSCULAR HEMOGLOBIN 31.2 pg (27.0-31.0); MEAN CORPUSCULAR HGB CONC 34.1 g/dL (33.0-37.0); MEAN PLATELET VOLUME 8.8 fL (7.2-11.7); MONO # 0.7 K/uL (0.0-0.8); MONO % 9.6 % (0.0-10.0); NEUT # 4.4 K/uL (1.8-7.0); NEUT % 64.3 % (50.0-75.0); NRBC % 0.1 % (0.0-2.0); RBC 3.62 Mil/uL (3.80-5.20); RED CELL DISTRIBUTION WIDTH 14.1 % (11.5-14.5); WHITE BLOOD COUNT 6.8 K/uL (4.8-10.8)
[2018-03-06 11:35] LABS: BLOOD UREA NITROGEN 14 mg/dL (7-17); CALCIUM 8.6 mg/dl (8.6-10.4); GFR AFRICAN-AMERICAN > 60; GFR NON-AFRICAN AMERICAN 57
[2018-03-06] MEDS: Sodium Chloride 0.9% 1,000 ML IV SCH (15:33)
[2018-03-06 15:39] VITALS: BP 139/91; PULSE 77; TEMP 98.5; O2SAT 97
--- NOTE | 2018-03-06 16:20 | CP.PCM.PN ---
Subjective - Date & Time of Evaluation Date of Evaluation: 03/06/18 Time of Evaluation: 11:00 - Subjective Subjective: Patient seen today, denies any chest pain, sob, palpitations, hematuria c/o lower abdominal pain improved with pain medication a febrile s/p cystoscopy Objective - Vital Signs/Intake and Output Vital Signs (last 24 hours): Temp Pulse Resp BP Pulse Ox 98.5 F 77 20 139/91 H 97 03/06/18 15:37 03/06/18 15:37 03/06/18 15:37 03/06/18 15:37 03/06/18 15:37 Intake and Output: 03/06/18 03/06/18 06:59 18:59 Intake Total 750 Output Total 450 Balance -450 750 - Medications Medications: Current Medications Acetaminophen (Tylenol 325mg Tab) 650 mg PO Q6 PRN PRN Reason: Fever >100.4 F Last Admin: 02/28/18 13:08 Dose: 650 mg Apixaban (Eliquis) 2.5 mg PO BID [facility] Last Admin: 03/06/18 10:39 Dose: 2.5 mg Aspirin (Ecotrin) 81 mg PO DAILY [facility] Last Admin: 03/06/18 10:38 Dose: 81 mg Ciprofloxacin (Cipro) 500 mg PO Q12H [facility] Clonazepam (Klonopin) 0.5 mg PO DAILY PRN PRN Reason: Anxiety Last Admin: 03/05/18 01:43 Dose: 0.5 mg Docusate Sodium (Colace) 100 mg PO TID [facility] Last Admin: 03/06/18 13:32 Dose: 100 mg Famotidine (Pepcid) 20 mg PO DAILY [facility] Last Admin: 03/06/18 10:38 Dose: 20 mg Sodium Chloride (Sodium Chloride 0.9%) 1,000 mls @ 40 mls/hr IV .Q24H [facility] Last Admin: 03/06/18 15:33 Dose: 40 mls/hr Insulin Aspart (Novolog) 0 unit SC ACHS [facility] PRN Reason: Protocol Last Admin: 03/06/18 11:59 Dose: Not Given Lactulose (Enulose) 20 gm PO DAILY PRN PRN Reason: Constipation Last Admin: 03/04/18 16:10 Dose: 20 gm Losartan Potassium (Cozaar) 50 mg PO HS [facility] Last Admin: 03/05/18 21:23 Dose: 50 mg Metoprolol Tartrate (Lopressor) 100 mg PO Q12 [facility] Last Admin: 03/06/18 10:38 Dose: 100 mg Mirtazapine (Remeron) 30 mg PO HS [facility] Last Admin: 03/05/18 21:23 Dose: 30 mg Multivitamins (Hexavitamin) 1 tab PO DAILY [facility] Last Admin: 03/06/18 10:38 Dose: 1 tab Oxybutynin Chloride (Ditropan Xl) 10 mg PO DAILY [facility] Last Admin: 03/06/18 10:39 Dose: 10 mg Tamsulosin HCl (Flomax) 0.4 mg PO DAILY [facility] Last Admin: 03/06/18 10:38 Dose: 0.4 mg Tramadol HCl (Ultram) 50 mg PO Q6 PRN PRN Reason: Pain, Mild (1-3) Last Admin: 03/06/18 10:51 Dose: 50 mg - Labs Labs: 03/06/18 11:15 03/06/18 11:15 PT 16.4 SECONDS (9.7-12.2) H 02/28/18 12:57 INR 1.5 02/28/18 12:57 APTT 45 SECONDS (21-34) H D 02/28/18 12:57 Assessment and Plan - Assessment and Plan (Free Text) Assessment: A/P 57 yr old female with pmhx of Anemia, Anxiety, Arthritis, Atrial Fibrillation, CAD, Depression, Diabetes, HTN, Hypercholesterolemia admitted abdominal pain and hematuria s/p cystoscopy hematuria resolved Patient started on eliquis for a fib and no hematuria noted urine culture- negative Seen by Dr. Hernadez today, f/u with Dr. Hernadez on 03/16/18 for f/u visit for D/w Dr. Colon , mariah for discharge home otday an df/u with Dr. Colon/ or PMD in 1 week discharge plan discussed with patient who understands and agrees with plan All instruction were written - f/u visi t and medication to continue given to the patient All risks, benefits of eliquis discussed with patient and the patient understood and agreed.
--- NOTE | 2018-03-06 23:56 | CP.PCM.DIS ---
Provider - Provider Date of Admission: 02/26/18 03:08 Attending physician: Chris Colon MD Time Spent in preparation of Discharge (in minutes): 45 Diagnosis - Discharge Diagnosis (1) Hematuria Status: Acute (2) Acute urinary tract infection Status: Acute Priority: High (3) Atrial fibrillation with rapid ventricular response Status: Acute Hospital Course - Lab Results Lab Results: Micro Results 02/26/18 01:30 Blood Blood Culture - Final NO GROWTH AFTER 5 DAYS 02/26/18 01:00 Blood Blood Culture - Final NO GROWTH AFTER 5 DAYS 02/26/18 01:00 Blood Gram Stain - Final TEST NOT PERFORMED 02/26/18 03:07 Urine Urine Culture - Final No Growth (<1,000 CFU/ML) Most Recent Lab Values WBC 6.8 K/uL (4.8-10.8) 03/06/18 11:15 RBC 3.62 Mil/uL (3.80-5.20) L 03/06/18 11:15 Hgb 11.3 g/dL (11.0-16.0) 03/06/18 11:15 Hct 33.2 % (34.0-47.0) L 03/06/18 11:15 MCV 91.6 fL (81.0-99.0) 03/06/18 11:15 MCH 31.2 pg (27.0-31.0) H 03/06/18 11:15 MCHC 34.1 g/dL (33.0-37.0) 03/06/18 11:15 RDW 14.1 % (11.5-14.5) 03/06/18 11:15 Plt Count 227 K/uL (130-400) 03/06/18 11:15 MPV 8.8 fL (7.2-11.7) 03/06/18 11:15 Neut % (Auto) 64.3 % (50.0-75.0) 03/06/18 11:15 Lymph % (Auto) 22.6 % (20.0-40.0) 03/06/18 11:15 [place] % (Auto) 9.6 % (0.0-10.0) 03/06/18 11:15 Eos % (Auto) 2.8 % (0.0-4.0) 03/06/18 11:15 Baso % (Auto) 0.7 % (0.0-2.0) 03/06/18 11:15 Neut # (Auto) 4.4 K/uL (1.8-7.0) 03/06/18 11:15 Lymph # (Auto) 1.5 K/uL (1.0-4.3) 03/06/18 11:15 [place] # (Auto) 0.7 K/uL (0.0-0.8) 03/06/18 11:15 Eos # (Auto) 0.2 K/uL (0.0-0.7) 03/06/18 11:15 Baso # (Auto) 0.1 K/uL (0.0-0.2) 03/06/18 11:15 PT 16.4 SECONDS (9.7-12.2) H 02/28/18 12:57 INR 1.5 02/28/18 12:57 APTT 45 SECONDS (21-34) H D 02/28/18 12:57 Sodium 145 mmol/L (132-148) 03/06/18 11:15 Potassium 3.6 mmol/L (3.6-5.2) 03/06/18 11:15 Chloride 110 mmol/L (98-107) H 03/06/18 11:15 Carbon Dioxide 25 mmol/L (22-30) 03/06/18 11:15 Anion Gap 15 (10-20) 03/06/18 11:15 BUN 14 mg/dL (7-17) 03/06/18 11:15 Creatinine 1.0 mg/dL (0.7-1.2) 03/06/18 11:15 Est GFR ( Amer) > 60 03/06/18 11:15 Est GFR (Non-Af Amer) 57 03/06/18 11:15 POC Glucose (mg/dL) 91 mg/dL (65-110) 03/06/18 16:03 Random Glucose 123 mg/dL (65-105) H 03/06/18 11:15 Calcium 8.6 mg/dl (8.6-10.4) 03/06/18 11:15 Total Bilirubin 0.6 mg/dL (0.2-1.3) 02/26/18 01:35 AST 25 U/L (14-36) 02/26/18 01:35 ALT 17 U/L (9-52) 02/26/18 01:35 Alkaline Phosphatase 121 U/L (38-126) 02/26/18 01:35 Total Creatine Kinase 59 U/L (30-135) 02/28/18 09:11 CK-MB (Mass) 0.57 ng/mL (0.0-3.38) 02/28/18 09:11 Troponin I < 0.0120 ng/mL (0.00-0.120) 02/28/18 09:11 Total Protein 8.2 g/dL (6.3-8.3) 02/26/18 01:35 Albumin 3.8 g/dL (3.5-5.0) 02/26/18 01:35 Globulin 4.4 gm/dL (2.2-3.9) H 02/26/18 01:35 Albumin/Globulin Ratio 0.9 (1.0-2.1) L 02/26/18 01:35 Lipase 108 U/L (23-300) 02/26/18 01:35 Urine Color Yellow (YELLOW) 03/02/18 07:06 Urine Clarity Hazy (Clear) 03/02/18 07:06 Urine pH 7.0 (5.0-8.0) 03/02/18 07:06 Ur Specific [place] 1.009 (1.003-1.030) 03/02/18 07:06 Urine Protein 3+ mg/dL (NEGATIVE) H 03/02/18 07:06 Urine Glucose (UA) Normal mg/dL (Normal) 03/02/18 07:06 Urine Ketones Negative mg/dL (NEGATIVE) 03/02/18 07:06 Urine Blood 3+ (NEGATIVE) H 03/02/18 07:06 Urine Nitrate Negative (NEGATIVE) 03/02/18 07:06 Urine Bilirubin Negative (NEGATIVE) 03/02/18 07:06 Urine Urobilinogen Normal mg/dL (0.2-1.0) 03/02/18 07:06 Ur Leukocyte Esterase 2+ [place]/uL (Negative) H 03/02/18 07:06 Urine WBC (Auto) 81 /hpf (0-5) H 03/02/18 07:06 Urine RBC (Auto) 221 /hpf (0-3) H 03/02/18 07:06 Ur Squamous Epith Cells 3 /hpf (0-5) 03/02/18 07:06 Urine Bacteria Rare (<OCC) 03/02/18 07:06 Discharge Exam - Head Exam Head Exam: ATRAUMATIC, NORMAL INSPECTION, NORMOCEPHALIC Discharge Plan - Discharge Medications Prescriptions: Losartan [Cozaar] 50 mg PO HS #30 tab Oxybutynin XL [Ditropan XL] 10 mg PO DAILY #30 ter Apixaban [Eliquis] 2.5 mg PO BID #60 tab Metoprolol Tartrate [Lopressor] 100 mg PO Q12 #60 tab Famotidine [Pepcid] 20 mg PO DAILY #20 tab Acetaminophen with Codeine [Tylenol with Codeine #3 Tablet] 1 each PO Q6 #20 tablet - Follow Up Plan Condition: FAIR Disposition: HOME/ ROUTINE Instructions: Heart Healthy Diet, Atrial Fibrillation (DC), Blood in the Urine (Hematuria), Adult (DC), Apixaban, Acetaminophen and Codeine, Famotidine, Losartan, Metoprolol, Oxybutynin, Cystoscopy (DC), Urinary Tract Infection in Women (DC) Additional Instructions: Please f/u with PMD in 1 weeks Please f/u with Dr. Duff - cardiology in 5 days PLEASE F/U WITH DR. DAVIS OFFICE ON AT 3 PM FOR AORTIC STENOSIS continue medication as per med. rec. If you noticed any bleeding please stop eliquis and contact your MD Referrals: Lm Davis MD [Staff Provider] - Chris Colon MD [Staff Provider] -
--- NOTE | 2018-03-08 23:01 | CARD ---
APPROVED REPORT EKG Measurement Heart [id number] <Conclusion> Atrial fibrillation with rapid ventricular response Voltage criteria for left ventricular hypertrophy ST & T wave abnormality, consider inferolateral ischemia Abnormal ECG
== END 2018-03-06 18:15 | disposition home or self-care (01) | DRG 310 ==
LOC: C.ER 23:59 → C.9E 02-26 03:08 → C.3T 02-26 12:46 → C.6T 02-28 13:59
PROVIDERS: ADMIT Internal Medicine; ATTEND Internal Medicine
PROC: 0TBB8ZX Excision of Bladder, Via Natural or Artificial Opening Endoscopic, Diagnostic (ICD-10-PCS; principal; 2018-03-01 13:30)
DX: N30.11 Interstitial cystitis (chronic) with hematuria (principal); N13.30 Unspecified hydronephrosis; I42.9 Cardiomyopathy, unspecified; I35.0 Nonrheumatic aortic (valve) stenosis; I48.1 Persistent atrial fibrillation; Z95.0 Presence of cardiac pacemaker; I48.2 Chronic atrial fibrillation; Z95.810 Presence of automatic (implantable) cardiac defibrillator; F41.9 Anxiety disorder, unspecified; G89.29 Other chronic pain; E11.9 Type 2 diabetes mellitus without complications; F32.9 Major depressive disorder, single episode, unspecified; I25.10 Atherosclerotic heart disease of native coronary artery without angina pectoris; I11.9 Hypertensive heart disease without heart failure; N39.0 Urinary tract infection, site not specified